=== PATIENT | male | born 1955 | race Caucasian/White ===

== ENCOUNTER 2017-01-31 12:29 | Inpatient (IN) | payer BC ==
[2017-01-31] VITALS (18 sets, daily range): BP systolic 90–122; BP diastolic 59–82; PULSE 64–81; TEMP 36.7–36.9; O2SAT 94–100; BMI 25.7
[~2017-01-31] VITALS: Ht 177.8 cm; Wt 79.8 kg
[2017-01-31] MEDS ORDERED: ASPIRIN 81 MG CHEW PO STA (12:50)
[2017-01-31] MEDS ORDERED: CLOPIDOGREL BISULFATE 300 MG TAB PO STA (12:54)
[2017-01-31 13:07] LABS: BASO % 0.1 %; BASO ABS # 0.02 K/uL (0-0.2); COMPLETE YES; EOS % 0.1 %; HEMATOCRIT 51.7 % (42-52); IG% 0.3 %; LYMPH % 9.8 %; LYMPH ABS # 1.75 K/uL (1.2-3.4); MEAN CORPUSCULAR HEMOGLOBIN 31.1 pg (25-34); MEAN CORPUSCULAR HGB CONC 35.8 g/dl (32-36); MEAN PLATELET VOLUME 11.1 fL (7.4-10.4); MONO % 8.8 %; NEUT % 80.9 %; PLATELET COUNT 221 K/uL (130-400); RED BLOOD COUNT 5.94 M/uL (4.7-6.1); WHITE BLOOD COUNT 17.78 K/uL (4.8-10.8)
[2017-01-31 13:10] LABS: ISTAT CREATININE 0.9 mg/dl (0.6-1.3); ISTAT HEMOGLOBIN 16.7 g/dl (14.0-18.0); ISTAT IONIZED CALCIUM 1.19 mmol/l (1.12-1.32)
[2017-01-31 13:14] LABS: PARTIAL THROMBOPLASTIN RATIO 0.9
[2017-01-31] MEDS ORDERED: NiCARDipine HCL INJ 2.5 MG/ML 10 ML AMP ONE (13:16)
[2017-01-31] MEDS ORDERED: FENTANYL CITRATE INJ 50 MCG/1 ML 2 ML VIAL ONE (13:16)
[2017-01-31] MEDS ORDERED: HEPARIN SOD (PORCINE) 1000 UNIT/ML 10 ML VIAL ONE (13:16)
[2017-01-31] MEDS ORDERED: MIDAZOLAM HCL 1 MG/ML 2ML VIAL ONE (13:16)
[2017-01-31] MEDS ORDERED: NITROGLYCERIN/D5W 100MCG/ML 20ML SYR ONE (13:16)
--- NOTE | 2017-01-31 13:19 | DIAGNOSTIC IMAGING REPORT ---
CHEST ONE VIEW PORTABLE HISTORY: 61 years-old Male Evaluate Fever/Sepsis acute fever with sepsis COMPARISON: None available TECHNIQUE: Portable AP view of the chest FINDINGS: Cardiomediastinal and hilar silhouettes are within normal limits. No pneumothorax, pleural effusion, focal airspace consolidation or overt pulmonary edema. The bones of the chest are grossly intact. IMPRESSION: No acute cardiopulmonary process. The above report was generated using voice recognition software. It may contain grammatical, syntax or spelling errors. Electronically signed by: Red Cantu M.D. 01/31/2017 1:17 PM Dictated Date/Time: 01/31/2017 1:16 PM
[2017-01-31 13:26] LABS: BUN/CREATININE RATIO 11.3 (10-20); CALCIUM 9.2 mg/dl (8.5-10.1); CREATININE 1.12 mg/dl (0.60-1.40)
[2017-01-31 13:45] LABS: CKMB/CK RATIO 12.3 (0-3.0); THYROID STIMULATING HORMONE 0.594 uIu/ml (0.300-4.500)
[2017-01-31] MEDS ORDERED: EPTIFIBATIDE 0.75 MG/ML 75MG VIAL IV ONE (14:13)
[2017-01-31] MEDS ORDERED: EPTIFIBATIDE 2 MG/ML 10 ML VIAL IV ONE ×2 (14:13)
--- NOTE | 2017-01-31 14:48 | EMERGENCY ROOM VISIT NOTE ---
History Report prepared by Mike: Jay Garland Under the Supervision of: Dr. Stephane Anderson D.O. First contact with patient: 12:45 Chief Complaint: CHEST PAIN Stated Complaint: CHEST PAIN,SWEATING,TIREDNESS History of Present Illness The patient is a 61 year old male who presents to the Emergency Room with complaints of chest pain that began 14 hours ago. He rates his pain a 5/10 in severity. He has never had a heart attack, cardiac catheterization, or a stress test. He denies any known medical problems. A couple of days ago, the patient states that he started to "not feel himself" which included feeling tired and run-down. 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 His symptoms continued into today, however his chest pain is significantly improved and his shortness of breath occurs intermittently. He notes diaphoresis as well. He is unsure what his cholesterol level is as he does not have a PCP. He denies any abdominal pain, nausea, or vomiting. Source of History: patient Onset: 14 hours ago Position: chest Symptom Intensity: 5/10 Quality: sharp Timing: constant Associated Symptoms: + diaphoresis, + SOB, + fatigue, No nausea, No vomiting , No abdominal pain Review of Systems See HPI for pertinent positives & negatives. A total of 10 systems reviewed and were otherwise negative. Past Medical & Surgical Medical Problems: (1) No Known Active Medical Problems Family History Patient reports no known family medical history. Social History Smoking Status: Former Smoker Smokeless Tobacco Use: Yes Drug Use: marijuana Occupation Status: employed Physical Exam Vital Signs Date Time Temp Pulse Resp B/P (MAP) Pulse Ox O2 Delivery O2 Flow Rate FiO2 01/31/17 14:32 50 18 117/70 (86) 100 Room Air 01/31/17 13:24 67 16 136/80 96 01/31/17 13:20 67 16 96 01/31/17 13:15 70 17 136/80 95 01/31/17 13:14 97 Room Air 01/31/17 13:14 97 Room Air 01/31/17 13:10 69 24 96 01/31/17 13:09 78 19 97 01/31/17 13:04 66 12 97 01/31/17 13:00 148/96 01/31/17 12:59 89 15 01/31/17 12:54 82 16 97 01/31/17 12:51 152/117 01/31/17 12:49 68 01/31/17 12:49 91 18 01/31/17 12:40 97 Room Air 01/31/17 12:36 36.7 88 18 143/93 99 Room Air Physical Exam CONSTITUTIONAL/VITAL SIGNS: Reviewed / noted above. GENERAL: Non-toxic in appearance. INTEGUMENTARY: Warm, dry, and [place]. HEAD: Normocephalic. EYES: without scleral icterus or trauma. ENT/OROPHARYNX: clear and moist. LYMPHADENOPATHY/NECK: Is supple without lymphadenopathy or meningismus. RESPIRATORY: Lungs clear and equal. CARDIOVASCULAR: Regular rate and rhythm. GI/ABDOMEN: Soft and nontender. No organomegaly or pulsatile mass. No rebound or guarding. Normal bowel sounds. EXTREMITIES: Warm and well perfused. BACK: No CVA tenderness. NEUROLOGICAL: Intact without focal deficits. PSYCHIATRIC: normal affect. MUSCULOSKELETAL: Normally developed with good muscle tone. Medical Decision & Procedures ER Provider Diagnostic Interpretation: Radiology results as stated below per my review and radiologist interpretation: CHEST ONE VIEW PORTABLE HISTORY: 61 years-old Male Evaluate Fever/Sepsis acute fever with sepsis COMPARISON: None available TECHNIQUE: Portable AP view of the chest FINDINGS: Cardiomediastinal and hilar silhouettes are within normal limits. No pneumothorax, pleural effusion, focal airspace consolidation or overt pulmonary edema. The bones of the chest are grossly intact. IMPRESSION: No acute cardiopulmonary process. The above report was generated using voice recognition software. It may contain grammatical, syntax or spelling errors. Electronically signed by: Red Cantu M.D. 01/31/2017 1:17 PM Dictated Date/Time: 01/31/2017 1:16 PM Laboratory Results 01/31/17 12:40 Red Blood Count 5.94, Mean Corpuscular Volume 87.0, Mean Corpuscular Hemoglobin 31.1, Mean Corpuscular Hemoglobin Concent 35.8, Mean Platelet Volume 11.1, Neutrophils (%) (Auto) 80.9, Lymphocytes (%) (Auto) 9.8, Monocytes (%) (Auto) 8.8, Eosinophils (%) (Auto) 0.1, Basophils (%) (Auto) 0.1, Neutrophils # (Auto) 14.38, Lymphocytes # (Auto) 1.75, Monocytes # (Auto) 1.56, Eosinophils # (Auto) 0.01, Basophils # (Auto) 0.02 01/31/17 12:40 Test 01/31/17 12:40 01/31/17 12:50 01/31/17 12:57 White Blood Count 17.78 K/uL (4.8-10.8) Red Blood Count 5.94 M/uL (4.7-6.1) Hemoglobin 18.5 g/dL (14.0-18.0) Hematocrit 51.7 % (42-52) Mean Corpuscular Volume 87.0 fL (80-100) Mean Corpuscular Hemoglobin 31.1 pg (25-34) Mean Corpuscular Hemoglobin Concent 35.8 g/dl (32-36) Platelet Count 221 K/uL (130-400) Mean Platelet Volume 11.1 fL (7.4-10.4) Neutrophils (%) (Auto) 80.9 % Lymphocytes (%) (Auto) 9.8 % Monocytes (%) (Auto) 8.8 % Eosinophils (%) (Auto) 0.1 % Basophils (%) (Auto) 0.1 % Neutrophils # (Auto) 14.38 K/uL (1.4-6.5) Lymphocytes # (Auto) 1.75 K/uL (1.2-3.4) Monocytes # (Auto) 1.56 K/uL (0.11-0.59) Eosinophils # (Auto) 0.01 K/uL (0-0.5) Basophils # (Auto) 0.02 K/uL (0-0.2) RDW Standard Deviation 41.4 fL (36.4-46.3) RDW Coefficient of Variation 13.0 % (11.5-14.5) Immature Granulocyte % (Auto) 0.3 % Immature Granulocyte # (Auto) 0.06 K/uL (0.00-0.02) Prothrombin Time 10.0 SECONDS (9.0-12.0) Prothromb Time International Ratio 1.0 (0.9-1.1) Activated Partial Thromboplast Time 24.1 SECONDS (21.0-31.0) Partial Thromboplastin Ratio 0.9 Est Creatinine Clear Calc Drug Dose 70.6 ml/min Estimated GFR () 81.2 Estimated GFR (Non- 70.0 BUN/Creatinine Ratio 11.3 (10-20) Calcium Level 9.2 mg/dl (8.5-10.1) Total Bilirubin 1.3 mg/dl (0.2-1) Direct Bilirubin 0.3 mg/dl (0-0.2) Aspartate Amino Transf (AST/SGOT) 420 U/L (15-37) Alanine Aminotransferase (ALT/SGPT) 106 U/L (12-78) Alkaline Phosphatase 79 U/L (45-117) Total Creatine Kinase 2784 U/L (39-308) Creatine Kinase MB 343.0 ng/ml (0.5-3.6) Creatine Kinase MB Ratio 12.3 (0-3.0) Troponin I 49.700 ng/ml (0-0.045) Total Protein 7.8 gm/dl (6.4-8.2) Albumin 3.9 gm/dl (3.4-5.0) Lipase 453 U/L (73-393) Thyroid Stimulating Hormone (TSH) 0.594 uIu/ml (0.300-4.500) Bedside Troponin I 35.860 ng/ml (0-0.045) Bedside Hemoglobin 16.7 g/dl (14.0-18.0) Bedside Hematocrit 49 % (42-52) Bedside Sodium 137 mEq/L (135-144) Bedside Potassium 4.1 mEq/L (3.3-5.0) Bedside Chloride 96 mEq/L (101-112) Bedside Total CO2 28 mEq/l (24-31) Anion Gap 17.0 mmol/L (16-25) Bedside Blood Urea Nitrogen 13 mg/dl (7-18) Bedside Creatinine 0.9 mg/dl (0.6-1.3) Bedside Glucose (other) 192 mg/dl (70-99) Bedside Ionized Calcium ([place]) 1.19 mmol/l (1.12-1.32) Laboratory results as stated above per my review. Medications Administered Medications (Trade) Dose Ordered Sig/[place] Route Start Time Stop Time Status Last Admin Dose Admin Aspirin (Aspirin Chew) 324 mg NOW STAT PO 01/31/17 12:50 01/31/17 12:52 DC 01/31/17 12:56 324 MG Clopidogrel Bisulfate (plAVix TAB) 300 mg NOW STAT PO 01/31/17 12:54 01/31/17 12:55 DC 01/31/17 12:56 300 MG Midazolam HCl (Versed Inj) 2 mg STK-MED ONCE .ROUTE 01/31/17 13:16 01/31/17 13:17 DC 01/31/17 13:16 1 MG Fentanyl Citrate (Fentanyl Inj) 100 mcg STK-MED ONCE .ROUTE 01/31/17 13:16 01/31/17 13:17 DC 01/31/17 13:16 50 MCG Heparin Sodium (Porcine) (Heparin Iv Bolus) 10,000 unit STK-MED ONCE .ROUTE 01/31/17 13:16 01/31/17 13:17 DC 01/31/17 13:16 8,000 UNIT Eptifibatide (Integrilin Inj) 20 mg STK-MED ONCE IV 01/31/17 14:13 01/31/17 14:14 DC 01/31/17 14:13 20 MG Eptifibatide (Integrilin Inj) 75 mg STK-MED ONCE IV 01/31/17 14:13 01/31/17 14:14 DC 01/31/17 14:13 75 MG Eptifibatide (Integrilin Inj) 20 mg STK-MED ONCE IV 01/31/17 14:13 01/31/17 14:14 DC 01/31/17 14:14 20 MG ECG Indication: chest pain Rate (beats per minute): 63 Rhythm: sinus rhythm Findings: ST depression (Anterolateral), ST elevation (Inferior), other ( Suggesting acute inferior wall NV) ED Course 1245: Previous medical records were reviewed. The patient was evaluated in room A12. A complete history and physical examination was performed. 1250: Ordered Aspirin 324 mg PO 1254: Ordered Clopidogrel 300 mg PO 1320: The patient will be taken to the catheterization lab to be further evaluated by Dr. Morton of Cardiology. Medical Decision Differentials considered include acute myocardial infarction, acute coronary syndrome, myocarditis, pericarditis, pericardial effusions /tamponade, esophageal perforation, thoracic aortic dissection, pulmonary embolism, pneumonia, pneumothorax, pancreatitis, shingles, acute cholecystitis, and perforated abdominal viscus. This is a 61-year-old male who presents to the ED with a chief complaint of feeling chest pains or shortness of breath. The patient states that he had a lot of chest pain yesterday. He states that he has just a little now. The patient also has been feeling tired and run down. He had some associated shortness of breath he was a smoker quit 3 years ago. He is a 25 year history of smoking. 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 His physical exam was unremarkable. Initial twelve-lead EKG was brought to my attention after being performed that reveals an acute inferior wall NV. Heart alert was called. Patient was treated with aspirin by mouth as well as Plavix by mouth. He stated that the majority of his pain was gone but he has some mild residual pain. The patient was taken to the cardiac labeler for further evaluation of his symptoms. His chest x-ray did not show acute disease. Initial troponin was 35 on i-STAT and 49 and the lab. The patient remained clinically stable during his ED stay was taken to the [employer] [facility]. Medication Reconcilliation Current Medication List: was personally reviewed by me Blood Pressure Screening Patient's blood pressure: Elevated blood pressure Blood pressure disposition: Referred to PCP Impression Primary Impression: Acute NV, inferior wall Critical Care I have personally spent greater than 30 minutes of critical care time in the direct management of this patient. This includes bedside care, interpretation of diagnostic studies, and testing, discussion with consultants, patient, and family members, and other required patient management activities. This 30 minutes is in excess of all separately billable procedures. Scribe Attestation The scribe's documentation has been prepared under my direction and personally reviewed by me in its entirety. I confirm that the note above accurately reflects all work, treatment, procedures, and medical decision making performed by me. Departure Information Dispostion Other (Being evaluated by Cardiology in the catheterization lab) Referrals Jaya Russell D.O. (PCP) Patient Instructions My [facility]
[2017-01-31] MEDS ORDERED: NITROGLYCERIN 0.4 MG SL PER TAB CHARGE SL PRN ×2 (15:00→15:30)
[2017-01-31] MEDS ORDERED: ONDANSETRON INJ 2 MG/ML 2 ML VIAL IV PRN (15:00)
[2017-01-31] MEDS ORDERED: ACETAMINOPHEN 325 MG TAB PO PRN ×2 (15:00→15:30)
[2017-01-31] MEDS ORDERED: EPTIFIBATIDE BOLUS / DRIP IV STA (15:02)
--- NOTE | 2017-01-31 15:02 | Procedure Note ---
Pre-Mod Sedation Assessment General Date of Moderate Sedation: Jan 31, 2017. Vital Signs: Vital Signs Past 12 Hours Date Time Temp Pulse Resp B/P (MAP) Pulse Ox O2 Delivery O2 Flow Rate FiO2 01/31/17 14:45 73 18 122/71 (88) 97 Room Air 01/31/17 14:32 50 18 117/70 (86) 100 Room Air 01/31/17 13:24 67 16 136/80 96 01/31/17 13:20 67 16 96 01/31/17 13:15 70 17 136/80 95 01/31/17 13:14 97 Room Air 01/31/17 13:14 97 Room Air 01/31/17 13:10 69 24 96 01/31/17 13:09 78 19 97 01/31/17 13:04 66 12 97 01/31/17 13:00 148/96 01/31/17 12:59 89 15 01/31/17 12:54 82 16 97 01/31/17 12:51 152/117 01/31/17 12:49 68 01/31/17 12:49 91 18 01/31/17 12:40 97 Room Air 01/31/17 12:36 36.7 88 18 143/93 99 Room Air Review Cardiovascular: regular rate, rhythm, no edema Abdomen: normal bowel sounds, non tender Lungs: chest non-tender, lungs clear Airway Class: III Pre-Sedation Airway Assessment Oral Cavity: WNL Able to Visualize Vocal Cords: No Short Thick Neck: No Hx of Sleep Apnea: No Smoking Status: Former Smoker Mallampati Classification: Class III ASA Classification: Class IV Procedure Planning Contraindications-for Mod Sed: None Yes Notes The planned sedation has been discussed with the patient and consent obtained. I have identified the patient, determined the appropriateness of sedation and have assessed the patient immediately prior to the procedure. All medicine(s) and interventions are by my order.
--- NOTE | 2017-01-31 15:05 | Procedure Note ---
Post-Mod Sedation Assessment General Date of Moderate Sedation Jan 31, 2017. Vital Signs: Vital Signs Past 12 Hours Date Time Temp Pulse Resp B/P (MAP) Pulse Ox O2 Delivery O2 Flow Rate FiO2 01/31/17 14:45 73 18 122/71 (88) 97 Room Air 01/31/17 14:32 50 18 117/70 (86) 100 Room Air 01/31/17 13:24 67 16 136/80 96 01/31/17 13:20 67 16 96 01/31/17 13:15 70 17 136/80 95 01/31/17 13:14 97 Room Air 01/31/17 13:14 97 Room Air 01/31/17 13:10 69 24 96 01/31/17 13:09 78 19 97 01/31/17 13:04 66 12 97 01/31/17 13:00 148/96 01/31/17 12:59 89 15 01/31/17 12:54 82 16 97 01/31/17 12:51 152/117 01/31/17 12:49 68 01/31/17 12:49 91 18 01/31/17 12:40 97 Room Air 01/31/17 12:36 36.7 88 18 143/93 99 Room Air Review - Discharge Criteria Vital Signs Stable: Yes Alert/Oriented/Conversant: Yes Returned to Baseline Mental St: Yes Nausea Absent/Minimal: Yes Pain/Discomfort/Absent/Minimal: Yes Normal/Baseline Respirations: Yes Active Bleeding?: No Pt Received D/C Instructions: N/A Prescriptions Given: None Specific Proced. D/C Criteria Distal Pulses Present (Cardiac: Yes Groin site assessed-Card Cath: N/A Voided Prior To Discharge: N/A Discharged Patients Adult Escort/Transportation: Yes
--- NOTE | 2017-01-31 15:20 | Cardiac Catheterization ---
Procedure Note Procedure Date Jan 31, 2017. 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 Circumflex - Moderate caliber, 80-90% proximal small-moderate size OM2 RCA - Dominant, 20-30% proximal, 100% sub-acute distal RCA occlusion; Post intervention 50% ostial R-PDA -- PCI -- Antithrombotic therapy: Heparin, Integrilin, Clopidogrel Procedure: RCA cannulated with JR4 guide Whisper wire passed across lesion into distal R-PAV Distal RCA lesion predilated with 2.5 compliant balloon Dilated lesion stented with 2 overlapping CANDI (3.0 x 22 Alpine, 2.75 x 30 Alpine) Stents post-dilated with 3.5 noncompliant balloon IC vasodilators administered for spasm Post procedure JOSE A 3 flow, stent well expanded with minimal residual stenosis and no apparent cardiac complications. Arterial Closure: TR Band Summary: 1. Inferior STEMI/Occluded distal RCA 2. 80-90% small distal circumflex/proximal OM2 3. Successful PCI of distal RCA with 2 overlapping CANDI (3.0 x 22, 2.75 x 30 Alpine ; post-dilated to 3.5). Recommendations: Admit to ICU for continued monitoring Loaded with Clopidogrel 600m Integrilin for 8 hours due to distal thrombus Continue dual-antiplatelet therapy with ASA/Clopidogrel for 1 year Trend troponins until peak, Check Echo Start beta-rustam/BRENDA as BP allows High-dose statin Consult cardiac Rehab Possible PCI of circumflex/OM2 later in hospitalization Hemodynamics Rest Ao: 131/71/98 Final Ao: 100/61/78 LV: -- Recommendations PCI without planned CABG Specimens None Radiation Exposure (mGy) 2262 Contrast (mls) 150 Fluids (cc crystalloids) 100 Drains None Anesthesia Moderate Procedural Complication(s) None Disposition ICU ACC Data Cardiac Status Clinical evaluation leading to the procedure CAD Presntation: STEMI STEMI or Non-STEMI: Symptom Onset Date/Time: 01/30 14:00 Thrombolytics: No Anginal Classification: CCS IV Heart Failure: No, NYHA Class: CCS I Cardiogenic Shock w/in 24Hrs: No Cardiac Arrest w/in 24Hrs: No Imaging studies past 6 months: No Stress studies past 6 months: No Diagnostic Status: Emergency Closure Device Percutaneous Entry Location: Radial Closure Device: Radial Band Recommendations: PCI without planned CABG PCI Indication: PCI for STEMI - Unstable First Noted: First EKG Lesion Segment Name: Distal RCA Culprit Artery: Yes Stenosis Prior to Rx (%): 100 Pre-Procedure JOSE A Flow: 0 Previously Treated Lesion: No Lesion Complexity: Non-High/Non-C Lesion Length (mm): 30 Thrombus Present: Yes Bifurcation Lesion: No Guidewire Across Lesion: Yes Guidewire: Stenosis Post-Procedure (%): 0 Post-Procedure JOSE A Flow: 3 Device(s) Deployed: Yes Intraprocedure Events Significant Dissection: No Perforation: No
[2017-01-31] MEDS ORDERED: MoRPHine SULFATE 2 MG/ML CARP IV PRN (15:30)
[2017-01-31] MEDS ORDERED: EPTIFIBATIDE INJ 75 MG PREMIXED IV SCH (15:30)
[2017-01-31] MEDS ORDERED: LORAZEPAM 0.5 MG TAB PO PRN (15:30)
[2017-01-31] MEDS ORDERED: LORAZEPAM 2 MG/ML 1 ML VIAL IV PRN (15:45)
[2017-01-31] MEDS: SODIUM CHLORIDE 0.9% 1000ML 1,000 ML IV SCH ×2 (15:47→21:46)
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
[2017-01-31] MEDS: METOPROLOL TARTRATE 25 MG TAB PO SCH (20:16)
[2017-01-31] MEDS ORDERED: Integrelin infusion --> STOP ORDER ONE (23:00)
[2017-02-01] VITALS (21 sets, daily range): BP systolic 73–111; BP diastolic 49–75; PULSE 70–107; TEMP 36.5–37.5; O2SAT 93–98
[2017-02-01 06:28] LABS: BASO % 0.1 %; BASO ABS # 0.02 K/uL (0-0.2); COMPLETE YES; EOS % 0.1 %; HEMATOCRIT 46.5 % (42-52); IG% 0.3 %; LYMPH % 15.1 %; LYMPH ABS # 2.07 K/uL (1.2-3.4); MEAN CELL VOLUME 86.6 fL (80-100); MEAN CORPUSCULAR HEMOGLOBIN 30.7 pg (25-34); MEAN CORPUSCULAR HGB CONC 35.5 g/dl (32-36); MEAN PLATELET VOLUME 11.2 fL (7.4-10.4); MONO % 15.7 %; NEUT % 68.7 %; PLATELET COUNT 176 K/uL (130-400); RED BLOOD COUNT 5.37 M/uL (4.7-6.1); WHITE BLOOD COUNT 13.72 K/uL (4.8-10.8)
[2017-02-01 07:07] LABS: BUN/CREATININE RATIO 14.7 (10-20); CALCIUM 8.5 mg/dl (8.5-10.1); CREATININE 0.84 mg/dl (0.60-1.40); MAGNESIUM 2.1 mg/dl (1.8-2.4); POTASSIUM 3.9 mmol/L (3.5-5.1)
[2017-02-01 07:30] LABS: CHOLESTEROL/HDL RATIO 2.1
[2017-02-01 07:45] LABS: ESTIMATED AVERAGE GLUCOSE 134 mg/dl; HA1C FLAG Normal (Normal)
[2017-02-01] MEDS ORDERED: ATORVASTATIN 40 MG TAB PO SCH (09:00)
[2017-02-01] MEDS: LISINOPRIL 5 MG TAB PO SCH (09:17)
[2017-02-01] MEDS: THIAMINE HCL 100 MG TAB PO SCH (09:18)
[2017-02-01] MEDS: ASPIRIN 81 MG ECTAB PO SCH (09:18)
[2017-02-01] MEDS: CLOPIDOGREL BISULFATE 75 MG TAB PO SCH (09:18)
[2017-02-01] MEDS: METOPROLOL TARTRATE 25 MG TAB PO SCH ×3 (09:18→21:00)
--- NOTE | 2017-02-01 10:50 | Critical Care Progress Note ---
Critical Care Progress Note Date of Service Feb 01, 2017. ICU Day ICU Day Number: [address] Tello Subjective Patient is resting comfortably in bed this morning with no acute complaints. Denies any chest pain or shortness of breath at this time. Has been urinating well, normal bowel movements, and denies any acute events overnight. Objective GENERAL: Awake, alert, well-appearing, in no distress HENT: Normocephalic, atraumatic. EYES: Normal conjunctiva. Sclera non-icteric. NECK: Supple. No nuchal rigidity. RESPIRATORY: Clear to auscultation. CARDIAC: Regular rate, normal rhythm. Extremities warm and well perfused. Pulses equal. ABDOMEN: Soft, non-distended. No tenderness to palpation. No rebound or guarding. No masses. RECTAL: Deferred. MUSCULOSKELETAL: Chest examination reveals no tenderness. The back is symmetrical on inspection without obvious abnormality. There is no CVA tenderness to palpation. No joint edema. LOWER EXTREMITIES: Calves are equal size bilaterally and non-tender. NEURO: Normal sensorium. No sensory or motor deficits noted. SKIN: No rash or jaundice noted. Current SOFA Score SOFA Score Response (Comments) Value Platelets (x10) > 150 0 Bilirubin (mg/dL) 1.2 - 1.9 1 [place] Coma Score 15 0 Level of Hypotension No Hypotension 0 Creatinine (mg/dL) < 1.2 0 Total 1 Assessment & Plan Patient is a 61 year old male that began experiencing chest pain on 01/30 that was 9/10 substernal pain but waited to come to the ED until 01/31 and a heart alert was called for STEMI after found to have ST elevations in the inferior leads suggesting an acute UT on EKG and a significantly elevated troponin. Cardiac cath found significant multivessel disease and 2 stents were placed in the distal RCA. The patient has tolerated the procedure well with no complaints of discomfort at this time and will go for additional stenting to the circumflex tomorrow. Neuro: - CAM-ICU Negative --> Alert and oriented x 3 - CIWA protocol for routine alcohol use --> Thiamine, Folic Acid + PRN Ativan for withdrawal CV: - STEMI s/p cardiac catheterization and stenting with outcomes listed below 1. Inferior STEMI/Occluded distal RCA 2. 80-90% small distal circumflex/proximal OM2 3. Successful PCI of distal RCA with 2 overlapping CANDI - Plan for stenting of circumflex tomorrow - Recommend dual antiplatelet therapy with Aspirin and Plavix for 1 year - Troponin 49.7 --> 56.4 - Lisinopril 5mg qAM - Metoprolol 25mg BID - Atorvastatin 80mg qAM - Consult Cardiac Rehab - ECHO: * Left ventricular systolic function is normal. * Akinesis of the proximal and mid inferior wall and adjacent inferoseptum. * Ejection Fraction = 55-60%. Resp: - Currently saturating well on room air - Supplemental oxygen as needed to maintain SpO2 > 90% - History of tobacco (25 pack years, quit 3 years ago) and marijuana abuse GI/Nutrition: - AHA heart healthy diet Heme: - Plavix + Aspirin Endocrine: - Hb A1c - 6.3 - Monitor blood sugars - Follow up with pcp regarding prediabetes Code Status - Full Resuscitation Attending addendum, agree with the above plan, the pt with STEMI, s/p RCA CANDI stening, successfully chest pain free, watch for ETOH withdrawal, continue current treatment per cardiology. agree with transfer to tele. discussed with the staff on rounds in details. CCT 35 min. Consults & Procedures Consultants: Dr. Dejon Morton Procedures: Cardiac Catheterization with stenting on 01/31/2017 Data Medications: Current Inpatient Medications Medications (Trade) Dose Ordered Sig/Suyapa Route Start Time Stop Time Status Last Admin Dose Admin Ondansetron HCl (Zofran Inj) 4 mg Q6H PRN IV 01/31/17 15:00 03/02/17 14:59 Aspirin (Ecotrin Tab) 81 mg QAM PO 02/01/17 09:00 03/03/17 08:59 02/01/17 09:18 81 MG Clopidogrel Bisulfate (plAVix TAB) 75 mg QAM PO 02/01/17 09:00 03/03/17 08:59 02/01/17 09:18 75 MG Metoprolol Tartrate (Lopressor Tab) 25 mg Q12 PO 01/31/17 21:00 03/02/17 20:59 02/01/17 09:18 25 MG Lisinopril (Zestril Tab) 5 mg QAM PO 02/01/17 09:00 03/03/17 08:59 02/01/17 09:17 5 MG Nitroglycerin (Nitrostat Tab) 0.4 mg Q5M PRN SL 01/31/17 15:30 03/02/17 15:29 Morphine Sulfate (MoRPHine SULFATE INJ) 2 mg Q30M PRN IV 01/31/17 15:30 02/14/17 15:29 Acetaminophen (Tylenol Tab) 650 mg Q4H PRN PO 01/31/17 15:30 03/02/17 15:29 Lorazepam (Ativan Tab) 0.5 mg Q4H PRN PO 01/31/17 15:30 03/02/17 15:29 Lorazepam (Ativan Inj) 1 mg Q4H PRN IV 01/31/17 15:45 03/02/17 15:44 Thiamine HCl (Vitamin B-1 Tab) 100 mg QAM PO 02/01/17 09:00 03/03/17 08:59 02/01/17 09:18 100 MG Folic Acid (Folvite Tab) 1 mg QAM PO 02/01/17 09:00 03/03/17 08:59 02/01/17 09:18 1 MG Vital Signs: Date Time Temp Pulse Resp B/P (MAP) Pulse Ox O2 Delivery O2 Flow Rate FiO2 02/01/17 08:00 95 Room Air 02/01/17 08:00 36.7 107 20 107/74 (85) 95 Room Air 02/01/17 06:01 84 21 103/74 (84) 93 02/01/17 06:00 81 22 93 02/01/17 05:30 37.1 02/01/17 05:00 76 21 101/75 (84) 93 02/01/17 04:04 95 Room Air 02/01/17 04:00 83 21 101/62 (75) 95 02/01/17 03:00 72 21 111/75 (87) 94 02/01/17 02:01 70 21 93/63 (73) 93 02/01/17 02:00 71 21 93 02/01/17 01:00 75 19 88/53 (65) 95 02/01/17 00:01 71 21 85/50 (62) 93 02/01/17 00:00 37.5 72 22 93 02/01/17 00:00 95 Room Air 01/31/17 23:00 75 20 103/59 (74) 95 01/31/17 22:00 66 20 90/67 (75) 94 01/31/17 21:01 68 21 93/66 (75) 94 01/31/17 21:00 68 21 94 01/31/17 20:00 36.9 68 21 109/71 (84) 95 01/31/17 20:00 95 Room Air 01/31/17 19:31 80 26 93/67 (76) 96 01/31/17 19:16 68 21 101/69 (80) 95 01/31/17 19:01 67 20 97/62 (74) 95 01/31/17 19:00 71 20 95 01/31/17 18:15 66 20 100/70 (80) 95 Room Air 01/31/17 17:15 70 18 106/67 (80) 96 Room Air 01/31/17 16:45 70 22 109/71 (84) 95 Room Air 01/31/17 16:15 36.8 66 20 106/76 (86) 97 Room Air 01/31/17 15:54 36.7 73 18 122/71 97 Nasal Cannula 2.0 01/31/17 15:45 81 18 111/82 (92) 95 Room Air 01/31/17 15:30 64 18 118/70 (86) 98 Room Air 01/31/17 15:15 67 13 115/79 (91) 100 01/31/17 15:00 68 17 103/75 (84) 96 Room Air 01/31/17 14:45 73 18 122/71 (88) 97 Room Air 01/31/17 14:32 50 18 117/70 (86) 100 Room Air 01/31/17 13:24 67 16 136/80 96 01/31/17 13:20 67 16 96 01/31/17 13:15 70 17 136/80 95 01/31/17 13:14 97 Room Air 01/31/17 13:14 97 Room Air 01/31/17 13:10 69 24 96 01/31/17 13:09 78 19 97 01/31/17 13:04 66 12 97 01/31/17 13:00 148/96 01/31/17 12:59 89 15 01/31/17 12:54 82 16 97 01/31/17 12:51 152/117 01/31/17 12:49 68 01/31/17 12:49 91 18 01/31/17 12:40 97 Room Air 01/31/17 12:36 36.7 88 18 143/93 99 Room Air Laboratory Results: Last 24 Hours Test 01/31/17 12:40 01/31/17 12:50 01/31/17 12:57 01/31/17 13:50 White Blood Count 17.78 K/uL Red Blood Count 5.94 M/uL Hemoglobin 18.5 g/dL Hematocrit 51.7 % Mean Corpuscular Volume 87.0 fL Mean Corpuscular Hemoglobin 31.1 pg Mean Corpuscular Hemoglobin Concent 35.8 g/dl Platelet Count 221 K/uL Mean Platelet Volume 11.1 fL Neutrophils (%) (Auto) 80.9 % Lymphocytes (%) (Auto) 9.8 % Monocytes (%) (Auto) 8.8 % Eosinophils (%) (Auto) 0.1 % Basophils (%) (Auto) 0.1 % Neutrophils # (Auto) 14.38 K/uL Lymphocytes # (Auto) 1.75 K/uL Monocytes # (Auto) 1.56 K/uL Eosinophils # (Auto) 0.01 K/uL Basophils # (Auto) 0.02 K/uL RDW Standard Deviation 41.4 fL RDW Coefficient of Variation 13.0 % Immature Granulocyte % (Auto) 0.3 % Immature Granulocyte # (Auto) 0.06 K/uL Prothrombin Time 10.0 SECONDS Prothromb Time International Ratio 1.0 Activated Partial Thromboplast Time 24.1 SECONDS Partial Thromboplastin Ratio 0.9 Sodium Level 133 mmol/L Potassium Level 4.0 mmol/L Chloride Level 98 mmol/L Carbon Dioxide Level 29 mmol/L Anion Gap 6.0 mmol/L 17.0 mmol/L Blood Urea Nitrogen 13 mg/dl Creatinine 1.12 mg/dl Est Creatinine Clear Calc Drug Dose 70.6 ml/min Estimated GFR () 81.2 Estimated GFR (Non- 70.0 BUN/Creatinine Ratio 11.3 Random Glucose 188 mg/dl Calcium Level 9.2 mg/dl Total Bilirubin 1.3 mg/dl Direct Bilirubin 0.3 mg/dl Aspartate Amino Transf (AST/SGOT) 420 U/L Alanine Aminotransferase (ALT/SGPT) 106 U/L Alkaline Phosphatase 79 U/L Total Creatine Kinase 2784 U/L Creatine Kinase MB 343.0 ng/ml Creatine Kinase MB Ratio 12.3 Troponin I 49.700 ng/ml Total Protein 7.8 gm/dl Albumin 3.9 gm/dl Lipase 453 U/L Thyroid Stimulating Hormone (TSH) 0.594 uIu/ml Bedside Troponin I 35.860 ng/ml Bedside Hemoglobin 16.7 g/dl Bedside Hematocrit 49 % Bedside Sodium 137 mEq/L Bedside Potassium 4.1 mEq/L Bedside Chloride 96 mEq/L Bedside Total CO2 28 mEq/l Bedside Blood Urea Nitrogen 13 mg/dl Bedside Creatinine 0.9 mg/dl Bedside Glucose (other) 192 mg/dl Bedside Ionized Calcium ([place]) 1.19 mmol/l Kaolin Activated Coagulation Time 252 SECONDS Test 01/31/17 15:45 02/01/17 05:48 Bedside Glucose 136 mg/dl White Blood Count 13.72 K/uL Red Blood Count 5.37 M/uL Hemoglobin 16.5 g/dL Hematocrit 46.5 % Mean Corpuscular Volume 86.6 fL Mean Corpuscular Hemoglobin 30.7 pg Mean Corpuscular Hemoglobin Concent 35.5 g/dl Platelet Count 176 K/uL Mean Platelet Volume 11.2 fL Neutrophils (%) (Auto) 68.7 % Lymphocytes (%) (Auto) 15.1 % Monocytes (%) (Auto) 15.7 % Eosinophils (%) (Auto) 0.1 % Basophils (%) (Auto) 0.1 % Neutrophils # (Auto) 9.42 K/uL Lymphocytes # (Auto) 2.07 K/uL Monocytes # (Auto) 2.16 K/uL Eosinophils # (Auto) 0.01 K/uL Basophils # (Auto) 0.02 K/uL RDW Standard Deviation 41.1 fL RDW Coefficient of Variation 13.0 % Immature Granulocyte % (Auto) 0.3 % Immature Granulocyte # (Auto) 0.04 K/uL Activated Partial Thromboplast Time 25.1 SECONDS Partial Thromboplastin Ratio 1.0 Sodium Level 134 mmol/L Potassium Level 3.9 mmol/L Chloride Level 103 mmol/L Carbon Dioxide Level 25 mmol/L Anion Gap 6.0 mmol/L Blood Urea Nitrogen 12 mg/dl Creatinine 0.84 mg/dl Est Creatinine Clear Calc Drug Dose 94.1 ml/min Estimated GFR () 108.8 Estimated GFR (Non- 93.8 BUN/Creatinine Ratio 14.7 Random Glucose 124 mg/dl Estimated Average Glucose 134 mg/dl Hemoglobin A1c 6.3 % Calcium Level 8.5 mg/dl Phosphorus Level 2.0 mg/dl Magnesium Level 2.1 mg/dl Total Bilirubin 1.7 mg/dl Direct Bilirubin 0.5 mg/dl Aspartate Amino Transf (AST/SGOT) 322 U/L Alanine Aminotransferase (ALT/SGPT) 97 U/L Alkaline Phosphatase 61 U/L Troponin I 56.400 ng/ml Total Protein 6.0 gm/dl Albumin 3.0 gm/dl Triglycerides Level 56 mg/dl Cholesterol Level 126 mg/dl HDL Cholesterol 61 mg/dl LDL Cholesterol, Calculated 54 mg/dl VLDL Cholesterol, Calculated 11 mg/dl Cholesterol/HDL Ratio 2.1 Resident Involvement: Resident Care Provided Care Provided: Adult Hospital Medicine
--- NOTE | 2017-02-01 12:26 | ECHOCARDIOGRAM REPORT ---
*NOTICE TO RECEIVING REPUBLICAN AGENCY This information is strictly Confidential and protected under [place] law. [place] law prohibits you from making any further disclosure of this information unless further disclosure is expressly permitted by the written consent of the person to whom it pertains or is authorized by law. A general authorization for the release of medical or other information is not sufficient for this purpose. Hospital accepts no responsibility if the information is made available to any other person, INCLUDING THE PATIENT. Interpretation Summary * Name: TATIANA VALERO Study Date: 02/01/2017 06:27 AM BP: 107/74 mmHg * Patient Location: .MSICU\[id number]\E107\S\1 HR: 107 * : 1955 (M/d/yyyy) Gender: Male Height: 70 in * Age: 61 yrs Ethnicity: CA Weight: 179 lb * Ordering Physician: Dejon Morton * Referring Physician: Self, Referred * Performed By: Todd Berman RCS * * Reason For Study: AMI * BSA: 2.0 m2 * -- Conclusions -- * Left ventricular systolic function is normal. * Akinesis of the proximal and mid inferior wall and adjacent inferoseptum. * Ejection Fraction = 55-60%. * There is mild concentric left ventricular hypertrophy. * There is mild tricuspid regurgitation. Procedure Details * A complete two-dimensional transthoracic echocardiogram was performed (2D, M-mode, Doppler and color flow Doppler). * A contrast injection of Definity was performed to improve assessment of LV function. * Contrast was injected into an intravenous site in the left arm. * One vial of Definity ultrasound contrast was diluted in normal saline to a total volume of 10 ml. A total of '1' ml of solution was administered during imaging. * Lot # [id number] of Definity utilized for procedure. * Expiration date . * The attending nurse who injected the contrast agent was Lena Jones RN. Left Ventricle * The left ventricle is normal in size. * There is mild concentric left ventricular hypertrophy. * Left ventricular systolic function is normal. * Ejection Fraction = 55-60%. * Akinesis of the proximal and mid inferior wall and adjacent inferoseptum. Right Ventricle * The right ventricle is grossly normal size. * The right ventricular systolic function is normal as assessed by tricuspid annular plane systolic excursion (TAPSE) (normal >1.5 cm). Atria * Borderline left atrial enlargement. * Right atrium not well visualized. * There is no evidence of atrial septal defect, but resolution does not allow assessment for a patent foramen ovale. Mitral Valve * The mitral valve is grossly normal. * Significant mitral regurgitation is absent. Tricuspid Valve * The tricuspid valve is not well visualized, but is grossly normal. * There is no tricuspid stenosis. * There is mild tricuspid regurgitation. Aortic Valve * The aortic valve is trileaflet. * The aortic valve opens well. * Aortic stenosis is absent. * No aortic regurgitation is present. Pulmonic Valve * The pulmonary valve is not well seen, but the Doppler examination is normal without significant regurgitation or stenosis. Great Vessels * The aortic root is normal size. * The pulmonary is not well visualized. Pericardium/Pleural * There is no pericardial effusion. Great Vessels * Normal inferior vena cava size and collapsability with sniff indicates a normal right atrial pressure of 3 mmHg MMode 2D Measurements and Calculations IVSd 1.0 cm IVSs 1.2 cm LVIDd 4.6 cm LVIDs 3.4 cm LVPWd 0.97 cm LVPWs 1.2 cm IVS/LVPW 1.1 FS 26.2 % EDV(Teich) 99.0 ml ESV(Teich) 48.0 ml EF(Teich) 51.5 % EDV(cubed) 99.4 ml ESV(cubed) 39.9 ml EF(cubed) 59.8 % % IVS thick 16.2 % % LVPW thick 23.8 % LV mass(C)d 160.9 grams LV mass(C)dI 80.8 grams/m\S\2 LV mass(C)s 131.2 grams LV mass(C)sI 65.9 grams/m\S\2 SV(Teich) 50.9 ml SI(Teich) 25.6 ml/m\S\2 SV(cubed) 59.5 ml SI(cubed) 29.9 ml/m\S\2 Ao root diam 3.3 cm Ao root area 8.5 cm\S\2 ACS 1.8 cm LA dimension 2.6 cm asc Aorta Diam 3.0 cm LA/Ao 0.78 EDV(MOD-sp4) 104.5 ml ESV(MOD-sp4) 36.2 ml EF(MOD-sp4) 65.3 % EDV(MOD-sp2) 73.4 ml ESV(MOD-sp2) 30.6 ml EF(MOD-sp2) 58.3 % SV(MOD-sp4) 68.2 ml SI(MOD-sp4) 34.3 ml/m\S\2 SV(MOD-sp2) 42.8 ml SI(MOD-sp2) 21.5 ml/m\S\2 Doppler Measurements and Calculations MV E max lamar 67.1 cm/sec MV A max lamar 50.1 cm/sec MV E/A 1.3 MV P1/2t max lamar 62.7 cm/sec MV P1/2t 79.6 msec MVA(P1/2t) 2.8 cm\S\2 MV dec slope 230.5 cm/sec\S\2 MV dec time 0.19 sec Ao V2 max 100.0 cm/sec Ao max PG 4.0 mmHg Ao max PG (full) 1.3 mmHg LV V1 max PG 2.7 mmHg LV V1 max 82.5 cm/sec PA V2 max 90.2 cm/sec PA max PG 3.3 mmHg TR max lamar 156.2 cm/sec
--- NOTE | 2017-02-01 18:00 | Cardiology Follow-Up ---
Subjective Subjective Date of Service: Feb 01, 2017. Pt evaluation today including: conversation w/ patient, physical exam, chart review, lab review, review of studies, review of inpatient medication list Additional Details: Feeling well. No recurrent chest pain. No events overnight. Telemetry reviewed--no significant arrhythmias Problem List Medical Problems: (1) Acute MA, inferior wall Status: Acute Review of Systems Constitutional: No fever, No chills Respiratory: No cough Cardiac: No chest pain Abdomen: No pain, No nausea Heme: No abnormal bleeding/bruising Endo: No fatigue Skin: No rash Objective Vital Signs Last Vital Signs Documentation Date Time Temp Pulse Resp B/P (MAP) Pulse Ox O2 Delivery O2 Flow Rate FiO2 02/01/17 16:00 93 Room Air 2.0 02/01/17 15:53 37.0 90 18 85/61 (69) Physical Exam: General Appearance: no apparent distress Neck: supple Respiratory/Chest: lungs clear, normal breath sounds Cardiovascular: regular rate, rhythm, no edema Abdomen: normal bowel sounds, non tender, soft Extremities: no pedal edema, + pertinent finding (Right radial artery--no hematoma, ecchymosis. Intact distal pulses and sensation) Neurologic/Psychiatric: alert, normal mood/affect Skin: warm/dry, no rash Assessment and Plan 1. Inferior STEMI--post PPCI 2 CANDI to RCA 2. Multivessel coronary artery disease with 80-90 percent distal circumflex/OM2 3. Preserved LV function inferior, inferolateral wall motion abnormalities 4. Elevated LFTs 5. History of alcohol abuse Chest pain free. Hemodynamically and electrically stable. Troponin has peaked. LV function preserved. --from a cardiac standpoint agree with transfer to telemetry today --continue dual antiplatelet therapy with aspirin and clopidogrel --continue current BRENDA, continue beta-rustam--will titrate up beta-rustam as BP allows --statin on hold in the setting of elevated LFTs--recommend trial of low-dose atorvastatin In the setting of inferolateral hypokinesis and severe circumflex disease plan for PCI to circumflex/OM tomorrow. Please keep NPO past midnight Medications: Current Inpatient Medications Medications (Trade) Dose Ordered Sig/[place] Route Start Time Stop Time Status Last Admin Dose Admin Ondansetron HCl (Zofran Inj) 4 mg Q6H PRN IV 01/31/17 15:00 03/02/17 14:59 Aspirin (Ecotrin Tab) 81 mg QAM PO 02/01/17 09:00 03/03/17 08:59 02/01/17 09:18 81 MG Clopidogrel Bisulfate (plAVix TAB) 75 mg QAM PO 02/01/17 09:00 03/03/17 08:59 02/01/17 09:18 75 MG Metoprolol Tartrate (Lopressor Tab) 25 mg Q12 PO 01/31/17 21:00 03/02/17 20:59 02/01/17 09:18 25 MG Lisinopril (Zestril Tab) 5 mg QAM PO 02/01/17 09:00 03/03/17 08:59 02/01/17 09:17 5 MG Nitroglycerin (Nitrostat Tab) 0.4 mg Q5M PRN SL 01/31/17 15:30 03/02/17 15:29 Morphine Sulfate (MoRPHine SULFATE INJ) 2 mg Q30M PRN IV 01/31/17 15:30 02/14/17 15:29 Acetaminophen (Tylenol Tab) 650 mg Q4H PRN PO 01/31/17 15:30 03/02/17 15:29 Lorazepam (Ativan Tab) 0.5 mg Q4H PRN PO 01/31/17 15:30 03/02/17 15:29 Lorazepam (Ativan Inj) 1 mg Q4H PRN IV 01/31/17 15:45 03/02/17 15:44 Thiamine HCl (Vitamin B-1 Tab) 100 mg QAM PO 02/01/17 09:00 03/03/17 08:59 02/01/17 09:18 100 MG Folic Acid (Folvite Tab) 1 mg QAM PO 02/01/17 09:00 03/03/17 08:59 02/01/17 09:18 1 MG Lab Results: 02/01/17 05:48 Red Blood Count 5.37, Mean Corpuscular Volume 86.6, Mean Corpuscular Hemoglobin 30.7, Mean Corpuscular Hemoglobin Concent 35.5, Mean Platelet Volume 11.2, Neutrophils (%) (Auto) 68.7, Lymphocytes (%) (Auto) 15.1, Monocytes (%) (Auto) 15.7, Eosinophils (%) (Auto) 0.1, Basophils (%) (Auto) 0.1, Neutrophils # (Auto ) 9.42, Lymphocytes # (Auto) 2.07, Monocytes # (Auto) 2.16, Eosinophils # (Auto ) 0.01, Basophils # (Auto) 0.02 02/01/17 05:48 Test 02/01/17 05:48 02/01/17 14:04 White Blood Count 13.72 K/uL (4.8-10.8) Red Blood Count 5.37 M/uL (4.7-6.1) Hemoglobin 16.5 g/dL (14.0-18.0) Hematocrit 46.5 % (42-52) Mean Corpuscular Volume 86.6 fL (80-100) Mean Corpuscular Hemoglobin 30.7 pg (25-34) Mean Corpuscular Hemoglobin Concent 35.5 g/dl (32-36) Platelet Count 176 K/uL (130-400) Mean Platelet Volume 11.2 fL (7.4-10.4) Neutrophils (%) (Auto) 68.7 % Lymphocytes (%) (Auto) 15.1 % Monocytes (%) (Auto) 15.7 % Eosinophils (%) (Auto) 0.1 % Basophils (%) (Auto) 0.1 % Neutrophils # (Auto) 9.42 K/uL (1.4-6.5) Lymphocytes # (Auto) 2.07 K/uL (1.2-3.4) Monocytes # (Auto) 2.16 K/uL (0.11-0.59) Eosinophils # (Auto) 0.01 K/uL (0-0.5) Basophils # (Auto) 0.02 K/uL (0-0.2) RDW Standard Deviation 41.1 fL (36.4-46.3) RDW Coefficient of Variation 13.0 % (11.5-14.5) Immature Granulocyte % (Auto) 0.3 % Immature Granulocyte # (Auto) 0.04 K/uL (0.00-0.02) Activated Partial Thromboplast Time 25.1 SECONDS (21.0-31.0) Partial Thromboplastin Ratio 1.0 Anion Gap 6.0 mmol/L (3-11) Est Creatinine Clear Calc Drug Dose 94.1 ml/min Estimated GFR () 108.8 Estimated GFR (Non- 93.8 BUN/Creatinine Ratio 14.7 (10-20) Estimated Average Glucose 134 mg/dl Hemoglobin A1c 6.3 % (4.5-5.6) Calcium Level 8.5 mg/dl (8.5-10.1) Phosphorus Level 2.0 mg/dl (2.5-4.9) Magnesium Level 2.1 mg/dl (1.8-2.4) Total Bilirubin 1.7 mg/dl (0.2-1) Direct Bilirubin 0.5 mg/dl (0-0.2) Aspartate Amino Transf (AST/SGOT) 322 U/L (15-37) Alanine Aminotransferase (ALT/SGPT) 97 U/L (12-78) Alkaline Phosphatase 61 U/L (45-117) Total Protein 6.0 gm/dl (6.4-8.2) Albumin 3.0 gm/dl (3.4-5.0) Triglycerides Level 56 mg/dl (0-150) Cholesterol Level 126 mg/dl (0-200) HDL Cholesterol 61 mg/dl LDL Cholesterol, Calculated 54 mg/dl VLDL Cholesterol, Calculated 11 mg/dl Cholesterol/HDL Ratio 2.1 Hepatitis B Surface Antigen NEG (NEG) Hepatitis C Antibody NEG (NEG) Troponin I 35.600 ng/ml (0-0.045)
--- NOTE | 2017-02-01 18:37 | Progress Note ---
Subjective Date of Service: Feb 01, 2017. Subjective Pt evaluation today including: conversation w/ patient, conversation w/ family , physical exam, chart review, lab review, review of studies feeling good now - pain free no sob no acute complaints chewing tobacco. 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: (1) Acute MT, inferior wall Status: Acute Review of Systems all other ROS otherwise negative except for as above Objective Vital Signs Date Time Temp Pulse Resp B/P (MAP) Pulse Ox O2 Delivery O2 Flow Rate FiO2 02/01/17 16:00 93 Room Air 2.0 02/01/17 15:53 37.0 90 18 85/61 (69) 93 Room Air 02/01/17 11:37 37.0 82 18 89/64 (72) 94 Room Air 02/01/17 10:00 90 20 107/65 (79) 97 Room Air 02/01/17 08:00 95 Room Air 02/01/17 08:00 36.7 107 20 107/74 (85) 95 Room Air 02/01/17 06:01 84 21 103/74 (84) 93 02/01/17 06:00 81 22 93 02/01/17 05:30 37.1 02/01/17 05:00 76 21 101/75 (84) 93 02/01/17 04:04 95 Room Air 02/01/17 04:00 83 21 101/62 (75) 95 02/01/17 03:00 72 21 111/75 (87) 94 02/01/17 02:01 70 21 93/63 (73) 93 02/01/17 02:00 71 21 93 02/01/17 01:00 75 19 88/53 (65) 95 02/01/17 00:01 71 21 85/50 (62) 93 02/01/17 00:00 37.5 72 22 93 02/01/17 00:00 95 Room Air 01/31/17 23:00 75 20 103/59 (74) 95 01/31/17 22:00 66 20 90/67 (75) 94 01/31/17 21:01 68 21 93/66 (75) 94 01/31/17 21:00 68 21 94 01/31/17 20:00 36.9 68 21 109/71 (84) 95 01/31/17 20:00 95 Room Air 01/31/17 19:31 80 26 93/67 (76) 96 01/31/17 19:16 68 21 101/69 (80) 95 01/31/17 19:01 67 20 97/62 (74) 95 01/31/17 19:00 71 20 95 Physical Exam General Appearance: no apparent distress Eyes: EOMI ENT: hearing grossly normal Neck: trachea midline Respiratory/Chest: no respiratory distress, no accessory muscle use Extremities: normal range of motion Neurologic/Psychiatric: 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 II-XII nml as tested, alert, normal mood/affect Skin: normal color, warm/dry Laboratory Results Last 24 Hours Test 02/01/17 05:48 02/01/17 14:04 White Blood Count 13.72 K/uL Red Blood Count 5.37 M/uL Hemoglobin 16.5 g/dL Hematocrit 46.5 % Mean Corpuscular Volume 86.6 fL Mean Corpuscular Hemoglobin 30.7 pg Mean Corpuscular Hemoglobin Concent 35.5 g/dl Platelet Count 176 K/uL Mean Platelet Volume 11.2 fL Neutrophils (%) (Auto) 68.7 % Lymphocytes (%) (Auto) 15.1 % Monocytes (%) (Auto) 15.7 % Eosinophils (%) (Auto) 0.1 % Basophils (%) (Auto) 0.1 % Neutrophils # (Auto) 9.42 K/uL Lymphocytes # (Auto) 2.07 K/uL Monocytes # (Auto) 2.16 K/uL Eosinophils # (Auto) 0.01 K/uL Basophils # (Auto) 0.02 K/uL RDW Standard Deviation 41.1 fL RDW Coefficient of Variation 13.0 % Immature Granulocyte % (Auto) 0.3 % Immature Granulocyte # (Auto) 0.04 K/uL Activated Partial Thromboplast Time 25.1 SECONDS Partial Thromboplastin Ratio 1.0 Sodium Level 134 mmol/L Potassium Level 3.9 mmol/L Chloride Level 103 mmol/L Carbon Dioxide Level 25 mmol/L Anion Gap 6.0 mmol/L Blood Urea Nitrogen 12 mg/dl Creatinine 0.84 mg/dl Est Creatinine Clear Calc Drug Dose 94.1 ml/min Estimated GFR () 108.8 Estimated GFR (Non- 93.8 BUN/Creatinine Ratio 14.7 Random Glucose 124 mg/dl Estimated Average Glucose 134 mg/dl Hemoglobin A1c 6.3 % Calcium Level 8.5 mg/dl Phosphorus Level 2.0 mg/dl Magnesium Level 2.1 mg/dl Total Bilirubin 1.7 mg/dl Direct Bilirubin 0.5 mg/dl Aspartate Amino Transf (AST/SGOT) 322 U/L Alanine Aminotransferase (ALT/SGPT) 97 U/L Alkaline Phosphatase 61 U/L Troponin I 56.400 ng/ml 35.600 ng/ml Total Protein 6.0 gm/dl Albumin 3.0 gm/dl Triglycerides Level 56 mg/dl Cholesterol Level 126 mg/dl HDL Cholesterol 61 mg/dl LDL Cholesterol, Calculated 54 mg/dl VLDL Cholesterol, Calculated 11 mg/dl Cholesterol/HDL Ratio 2.1 Hepatitis B Surface Antigen NEG Hepatitis C Antibody NEG Assessment and Plan STEMI -s/p RCA stenting -for repeat PCI tomorrow -troponin trending down and symptoms have totally resolved -continue med management - will add atorvastatin and follow CAD -as above -counselled extensively on lifestyle change including exercise, eating habits, tobacco cessation --> will discuss meds tomorrow impaired glucose tolerance -A1c 6.3% but consumes a large amount of concentrated carbs/starches/sugars -lifestyle change discussed extensively elevated LFTs -almost certainly lifestyle (EtOH and probably fatty liver from diet) related -lifestyle change DVT proph -ambulation and antiplatelets as per cardiology management
[2017-02-01] MEDS: ATORVASTATIN 40 MG TAB PO SCH (19:57)
[2017-02-01] MEDS ORDERED: SODIUM CHLORIDE 0.9% 500ML 500 ML IV ONE (21:45)
[2017-02-01] MEDS ORDERED: POTASSIUM CHLORIDE 10 MEQ TABCR PO STA (21:52)
[2017-02-01] MEDS ORDERED: SODIUM CHLORIDE 0.9% 1000ML 1,000 ML IV ONE (22:00)
--- NOTE | 2017-02-01 22:15 | DIAGNOSTIC IMAGING REPORT ---
SINGLE VIEW CHEST CLINICAL HISTORY: Hypotension status post catheterization. FINDINGS: An AP, portable, upright chest radiograph is compared to study dated 01/31/2017. The examination is degraded by portable technique and patient rotation. The heart is top normal for projection. The pulmonary vasculature is noncongested. The lungs and pleural spaces are clear. No pneumothorax is seen. The bony thorax is grossly intact. IMPRESSION: No acute cardiopulmonary abnormality. Electronically signed by: Prasad Shin M.D. 02/01/2017 10:14 PM Dictated Date/Time: 02/01/2017 10:13 PM
[2017-02-01 22:16] LABS: BASO % 0.3 %; BASO ABS # 0.03 K/uL (0-0.2); EOS % 0.3 %; HEMATOCRIT 41.4 % (42-52); IG% 0.3 %; LYMPH % 27.7 %; LYMPH ABS # 3.29 K/uL (1.2-3.4); MEAN CELL VOLUME 86.3 fL (80-100); MEAN CORPUSCULAR HEMOGLOBIN 30.4 pg (25-34); MEAN PLATELET VOLUME 10.8 fL (7.4-10.4); MONO % 16.3 %; NEUT % 55.1 %; PLATELET COUNT 149 K/uL (130-400); WHITE BLOOD COUNT 11.87 K/uL (4.8-10.8)
[2017-02-01 22:22] LABS: COMPLETE YES; MEAN CORPUSCULAR HGB CONC 35.3 g/dl (32-36)
[2017-02-01 22:43] LABS: ALB/GLOB RATIO 0.9 (0.9-2); BUN/CREATININE RATIO 19.1 (10-20); CALCIUM 8.2 mg/dl (8.5-10.1); CREATININE 0.97 mg/dl (0.60-1.40); POTASSIUM 3.8 mmol/L (3.5-5.1)
[2017-02-02] VITALS (16 sets, daily range): BP systolic 72–111; BP diastolic 40–71; PULSE 53–97; TEMP 36.5–37.4; O2SAT 91–98; Ht 177.8 cm; Wt 79.8 kg
--- NOTE | 2017-02-02 02:14 | Progress Note ---
Progress Note Date of Service Feb 02, 2017. Progress Note informed by RN of asymptomatic hypotensive episodes with MAP approx 50, discussed with Dr Morton and he was made aware. Fluid responsive however remained hypotensive with a MAP of > 65. EKG, CXR and labs ordered. Plan to monitor bp hourly until am, discussed with RN
[2017-02-02] MEDS ORDERED: SODIUM CHLORIDE 0.9% 500ML 500 ML IV STA (04:30)
[2017-02-02] MEDS ORDERED: NURSING VERBAL MED ORDER ONE (04:30)
[2017-02-02 06:22] LABS: BASO % 0.2 %; BASO ABS # 0.02 K/uL (0-0.2); COMPLETE YES; EOS % 0.3 %; HEMATOCRIT 41.5 % (42-52); IG% 0.5 %; LYMPH % 19.7 %; LYMPH ABS # 2.08 K/uL (1.2-3.4); MEAN CELL VOLUME 87.2 fL (80-100); MEAN CORPUSCULAR HEMOGLOBIN 30.7 pg (25-34); MEAN CORPUSCULAR HGB CONC 35.2 g/dl (32-36); MEAN PLATELET VOLUME 10.7 fL (7.4-10.4); MONO % 14.2 %; NEUT % 65.1 %; PLATELET COUNT 138 K/uL (130-400); RED BLOOD COUNT 4.76 M/uL (4.7-6.1); WHITE BLOOD COUNT 10.58 K/uL (4.8-10.8)
[2017-02-02 06:40] LABS: BUN/CREATININE RATIO 19.8 (10-20); CALCIUM 8.1 mg/dl (8.5-10.1); CREATININE 0.84 mg/dl (0.60-1.40); POTASSIUM 4.5 mmol/L (3.5-5.1)
[2017-02-02 06:47] LABS: ALB/GLOB RATIO 0.9 (0.9-2)
[2017-02-02] MEDS: ASPIRIN 81 MG ECTAB PO SCH (08:41)
[2017-02-02] MEDS: CLOPIDOGREL BISULFATE 75 MG TAB PO SCH (08:41)
[2017-02-02] MEDS: METOPROLOL TARTRATE 25 MG TAB PO SCH ×2 (09:00→21:05)
[2017-02-02] MEDS: THIAMINE HCL 100 MG TAB PO SCH (09:00)
[2017-02-02] MEDS: LISINOPRIL 5 MG TAB PO SCH (09:00)
--- NOTE | 2017-02-02 10:48 | Medical Student: [facility] ---
Med Student Progress Note Date of Service Feb 01, 2017. Subjective Pt evaluation today including: conversation w/ patient, conversation w/ family , physical exam, chart review, lab review, review of studies Voiding: no voiding problems Avtar is a 61-year-old male with no reported past medical history who presented to the ER on the morning of 02/01 after a 14-hour history of 10/10 chest pain, shortness of breath, diaphoresis, and nausea. 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 He did not take any measures to relieve the pain. That evening he took an ASA, went to sleep, and woke up with 5 /10 chest pain and decreased intensity of his symptoms and came to the ER. EKG showed acute inferior wall infarct and patient was taken to the cytology laboratory manager, where two drug-eluting stents were placed. Today he was seen at the bedside with his . He was resting comfortably and was in no acute distress. He denied any chest pain, SOB, diaphoresis, or nausea/ vomiting. He has not yet had a BM but has had no problems with urination. Denies having an appetite but is tolerating meals well. Has no complaints at this time. Review of Systems Constitutional: + see HPI Respiratory: + see HPI Cardiac: + see HPI Abdomen: + see HPI Male : + see HPI Objective Vital Signs Date Time Temp Pulse Resp B/P (MAP) Pulse Ox O2 Delivery O2 Flow Rate FiO2 02/02/17 08:19 77 18 89/61 (70) 97 Nasal Cannula 2.0 02/02/17 06:00 36.6 53 20 78/56 96 Nasal Cannula 3.0 02/02/17 06:00 54 20 78/56 (63) 96 Nasal Cannula 3.0 02/02/17 05:00 56 20 85/57 (66) 96 Nasal Cannula 3.0 02/02/17 04:39 60 21 90/52 (65) 96 Nasal Cannula 3.0 02/02/17 04:00 98 Nasal Cannula 3.0 02/02/17 04:00 59 19 72/40 (51) 96 Nasal Cannula 3.0 02/02/17 03:36 36.6 58 18 96 Nasal Cannula 2.0 02/02/17 03:00 60 20 82/55 (64) 91 Nasal Cannula 3.0 02/02/17 01:00 57 23 76/52 (60) 95 Nasal Cannula 3.0 02/02/17 00:23 37.4 69 18 78/50 (59) 95 Nasal Cannula 2.5 02/02/17 00:00 36.5 63 17 86/53 (64) 94 Nasal Cannula 3.0 02/02/17 00:00 98 Nasal Cannula 3.0 02/01/17 21:57 76 20 77/50 (59) 97 Nasal Cannula 3.0 02/01/17 21:50 75 21 74/52 (59) 96 Nasal Cannula 3.0 02/01/17 21:49 73 78/49 (59) 96 Nasal Cannula 3.0 02/01/17 20:00 98 Nasal Cannula 3.0 02/01/17 20:00 36.5 86 18 73/53 (60) 94 Room Air 02/01/17 16:00 93 Room Air 2.0 02/01/17 15:53 37.0 90 18 85/61 (69) 93 Room Air 02/01/17 11:37 37.0 82 18 89/64 (72) 94 Room Air Physical Exam General Appearance: WD/WN, no apparent distress Eyes: bilateral eyes normal inspection, bilateral eyes PERRL, bilateral eyes EOMI Neck: supple, no adenopathy, no JVD, no carotid bruits Respiratory/Chest: chest non-tender, lungs clear, normal breath sounds, no respiratory distress, no accessory muscle use Cardiovascular: regular rate, rhythm, no edema, no gallop, no JVD, no murmur Abdomen: normal bowel sounds, non tender, soft, + distended Extremities: no pedal edema, no calf tenderness Neurologic/Psychiatric: alert, normal mood/affect, oriented x 3 Skin: normal color, warm/dry, no rash Lymphatic: no adenopathy Laboratory Results Last 24 Hours Test 02/01/17 14:04 02/01/17 20:42 02/01/17 21:57 02/02/17 05:42 Troponin I 35.600 ng/ml 28.200 ng/ml Bedside Glucose 124 mg/dl White Blood Count 11.87 K/uL 10.58 K/uL Red Blood Count 4.80 M/uL 4.76 M/uL Hemoglobin 14.6 g/dL 14.6 g/dL Hematocrit 41.4 % 41.5 % Mean Corpuscular Volume 86.3 fL 87.2 fL Mean Corpuscular Hemoglobin 30.4 pg 30.7 pg Mean Corpuscular Hemoglobin Concent 35.3 g/dl 35.2 g/dl Platelet Count 149 K/uL 138 K/uL Mean Platelet Volume 10.8 fL 10.7 fL Neutrophils (%) (Auto) 55.1 % 65.1 % Lymphocytes (%) (Auto) 27.7 % 19.7 % Monocytes (%) (Auto) 16.3 % 14.2 % Eosinophils (%) (Auto) 0.3 % 0.3 % Basophils (%) (Auto) 0.3 % 0.2 % Neutrophils # (Auto) 6.54 K/uL 6.90 K/uL Lymphocytes # (Auto) 3.29 K/uL 2.08 K/uL Monocytes # (Auto) 1.94 K/uL 1.50 K/uL Eosinophils # (Auto) 0.03 K/uL 0.03 K/uL Basophils # (Auto) 0.03 K/uL 0.02 K/uL RDW Standard Deviation 41.1 fL 42.1 fL RDW Coefficient of Variation 12.9 % 13.1 % Immature Granulocyte % (Auto) 0.3 % 0.5 % Immature Granulocyte # (Auto) 0.04 K/uL 0.05 K/uL Sodium Level 132 mmol/L 135 mmol/L Potassium Level 3.8 mmol/L 4.5 mmol/L Chloride Level 100 mmol/L 105 mmol/L Carbon Dioxide Level 24 mmol/L 24 mmol/L Anion Gap 8.0 mmol/L 7.0 mmol/L Blood Urea Nitrogen 19 mg/dl 17 mg/dl Creatinine 0.97 mg/dl 0.84 mg/dl Est Creatinine Clear Calc Drug Dose 81.5 ml/min 94.1 ml/min Estimated GFR () 96.6 108.8 Estimated GFR (Non- 83.3 93.8 BUN/Creatinine Ratio 19.1 19.8 Random Glucose 102 mg/dl 99 mg/dl Calcium Level 8.2 mg/dl 8.1 mg/dl Total Bilirubin 1.3 mg/dl 1.3 mg/dl Aspartate Amino Transf (AST/SGOT) 147 U/L 113 U/L Alanine Aminotransferase (ALT/SGPT) 69 U/L 58 U/L Alkaline Phosphatase 55 U/L 47 U/L Total Protein 5.7 gm/dl 5.5 gm/dl Albumin 2.7 gm/dl 2.6 gm/dl Globulin 3.0 gm/dl 2.9 gm/dl Albumin/Globulin Ratio 0.9 0.9 Activated Partial Thromboplast Time 26.1 SECONDS Partial Thromboplastin Ratio 1.0 Test 02/02/17 07:10 Bedside Glucose 93 mg/dl Assessment and Plan Assessment and Plan: Avtar is a 61-year-old male with no reported past medical history who presented with complaints of chest pain, SOB, nausea, and diaphoresis. His EKG showed an acute inferior wall infarct and he was taken to the cytology laboratory manager and had two drug eluting stents placed in the RCA. 1) Myocardial infarction -pharmacologic management as an inpatient should include the following a. beta rustam b. aspirin and clopidogrel c. atorvastatin d. lisinopril e. nitrates prn -marriage counselor minister on lifestyle changes a. dietary changes - cut back on soda, sugary foods, starchy foods b. exercise - build up to 20-30 min continuous exercise c. 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
--- NOTE | 2017-02-02 17:23 | Progress Note ---
Subjective Date of Service: Feb 02, 2017. Subjective Pt evaluation today including: conversation w/ patient, conversation w/ family , physical exam, chart review, lab review, review of inpatient medication list feeling good. BP was low through the night but relates to BP meds. motivated to make lifestyle change for [facility] again tomorrow repeat stenting no other new complaints no current CP Problem List Medical Problems: (1) Acute AL, inferior wall Status: Acute Review of Systems all other ROS otherwise negative except for as above Objective Vital Signs Date Time Temp Pulse Resp B/P (MAP) Pulse Ox O2 Delivery O2 Flow Rate FiO2 02/02/17 16:00 Nasal Cannula 2.0 02/02/17 15:43 36.5 90 20 111/68 (82) 98 Nasal Cannula 2.0 02/02/17 12:18 36.9 82 17 95/65 (75) 97 Room Air 02/02/17 12:04 97 Nasal Cannula 3.0 02/02/17 08:19 77 18 89/61 (70) 97 Nasal Cannula 2.0 02/02/17 08:00 97 Nasal Cannula 3.0 02/02/17 06:00 36.6 53 20 78/56 96 Nasal Cannula 3.0 02/02/17 06:00 54 20 78/56 (63) 96 Nasal Cannula 3.0 02/02/17 05:00 56 20 85/57 (66) 96 Nasal Cannula 3.0 02/02/17 04:39 60 21 90/52 (65) 96 Nasal Cannula 3.0 02/02/17 04:00 98 Nasal Cannula 3.0 02/02/17 04:00 59 19 72/40 (51) 96 Nasal Cannula 3.0 02/02/17 03:36 36.6 58 18 96 Nasal Cannula 2.0 02/02/17 03:00 60 20 82/55 (64) 91 Nasal Cannula 3.0 02/02/17 01:00 57 23 76/52 (60) 95 Nasal Cannula 3.0 02/02/17 00:23 37.4 69 18 78/50 (59) 95 Nasal Cannula 2.5 02/02/17 00:00 36.5 63 17 86/53 (64) 94 Nasal Cannula 3.0 02/02/17 00:00 98 Nasal Cannula 3.0 02/01/17 21:57 76 20 77/50 (59) 97 Nasal Cannula 3.0 02/01/17 21:50 75 21 74/52 (59) 96 Nasal Cannula 3.0 02/01/17 21:49 73 78/49 (59) 96 Nasal Cannula 3.0 02/01/17 20:00 98 Nasal Cannula 3.0 02/01/17 20:00 36.5 86 18 73/53 (60) 94 Room Air Physical Exam General Appearance: no apparent distress Eyes: EOMI ENT: hearing grossly normal Neck: trachea midline Respiratory/Chest: no respiratory distress, no accessory muscle use 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, alert, normal mood/affect Skin: normal color, warm/dry Laboratory Results Last 24 Hours Test 02/01/17 20:42 02/01/17 21:57 02/02/17 05:42 02/02/17 07:10 Bedside Glucose 124 mg/dl 93 mg/dl White Blood Count 11.87 K/uL 10.58 K/uL Red Blood Count 4.80 M/uL 4.76 M/uL Hemoglobin 14.6 g/dL 14.6 g/dL Hematocrit 41.4 % 41.5 % Mean Corpuscular Volume 86.3 fL 87.2 fL Mean Corpuscular Hemoglobin 30.4 pg 30.7 pg Mean Corpuscular Hemoglobin Concent 35.3 g/dl 35.2 g/dl Platelet Count 149 K/uL 138 K/uL Mean Platelet Volume 10.8 fL 10.7 fL Neutrophils (%) (Auto) 55.1 % 65.1 % Lymphocytes (%) (Auto) 27.7 % 19.7 % Monocytes (%) (Auto) 16.3 % 14.2 % Eosinophils (%) (Auto) 0.3 % 0.3 % Basophils (%) (Auto) 0.3 % 0.2 % Neutrophils # (Auto) 6.54 K/uL 6.90 K/uL Lymphocytes # (Auto) 3.29 K/uL 2.08 K/uL Monocytes # (Auto) 1.94 K/uL 1.50 K/uL Eosinophils # (Auto) 0.03 K/uL 0.03 K/uL Basophils # (Auto) 0.03 K/uL 0.02 K/uL RDW Standard Deviation 41.1 fL 42.1 fL RDW Coefficient of Variation 12.9 % 13.1 % Immature Granulocyte % (Auto) 0.3 % 0.5 % Immature Granulocyte # (Auto) 0.04 K/uL 0.05 K/uL Sodium Level 132 mmol/L 135 mmol/L Potassium Level 3.8 mmol/L 4.5 mmol/L Chloride Level 100 mmol/L 105 mmol/L Carbon Dioxide Level 24 mmol/L 24 mmol/L Anion Gap 8.0 mmol/L 7.0 mmol/L Blood Urea Nitrogen 19 mg/dl 17 mg/dl Creatinine 0.97 mg/dl 0.84 mg/dl Est Creatinine Clear Calc Drug Dose 81.5 ml/min 94.1 ml/min Estimated GFR () 96.6 108.8 Estimated GFR (Non- 83.3 93.8 BUN/Creatinine Ratio 19.1 19.8 Random Glucose 102 mg/dl 99 mg/dl Calcium Level 8.2 mg/dl 8.1 mg/dl Total Bilirubin 1.3 mg/dl 1.3 mg/dl Aspartate Amino Transf (AST/SGOT) 147 U/L 113 U/L Alanine Aminotransferase (ALT/SGPT) 69 U/L 58 U/L Alkaline Phosphatase 55 U/L 47 U/L Troponin I 28.200 ng/ml Total Protein 5.7 gm/dl 5.5 gm/dl Albumin 2.7 gm/dl 2.6 gm/dl Globulin 3.0 gm/dl 2.9 gm/dl Albumin/Globulin Ratio 0.9 0.9 Activated Partial Thromboplast Time 26.1 SECONDS Partial Thromboplastin Ratio 1.0 Test 02/02/17 11:09 02/02/17 15:51 Bedside Glucose 85 mg/dl 105 mg/dl Assessment and Plan STEMI -s/p RCA stenting, no further angina, and is stable -for repeat PCI tomorrow -troponin trending down and symptoms have totally resolved -continue med management CAD -as above -counselled extensively on lifestyle change including exercise, eating habits, tobacco cessation on 02/01, counselled extensively (med by med with rationale and evidence) on med management and benefits/side effects/etc today -dual antiplatelets, have to hold beta rustam due to BP, hopefully low dose lisinopril, atorvastatin, prn nitro impaired glucose tolerance -A1c 6.3% but consumes a large amount of concentrated carbs/starches/sugars -lifestyle change discussed extensively 02/01 elevated LFTs -almost certainly lifestyle (EtOH and probably fatty liver from diet) related -lifestyle change discussed -also frankly and directly discussed EtOH related LFT elevation and monitoring with statin, but wtih STEMI benefits of statin still appear to outweigh the risks as long as he is monitored closely and continues to try to change drinking habits DVT proph -ambulation and antiplatelets as per cardiology management
[2017-02-02] MEDS: ATORVASTATIN 40 MG TAB PO SCH (21:06)
[2017-02-03] VITALS (13 sets, daily range): BP systolic 86–111; BP diastolic 58–82; PULSE 78–98; TEMP 36.6–37.5; O2SAT 9–97
[2017-02-03 06:12] LABS: BASO % 0.2 %; BASO ABS # 0.02 K/uL (0-0.2); COMPLETE YES; EOS % 0.5 %; HEMATOCRIT 43.3 % (42-52); IG% 0.4 %; LYMPH % 24.6 %; LYMPH ABS # 2.11 K/uL (1.2-3.4); MEAN CELL VOLUME 86.9 fL (80-100); MEAN CORPUSCULAR HEMOGLOBIN 30.5 pg (25-34); MEAN CORPUSCULAR HGB CONC 35.1 g/dl (32-36); MEAN PLATELET VOLUME 10.7 fL (7.4-10.4); MONO % 13.6 %; NEUT % 60.7 %; PLATELET COUNT 144 K/uL (130-400); RED BLOOD COUNT 4.98 M/uL (4.7-6.1); WHITE BLOOD COUNT 8.56 K/uL (4.8-10.8)
[2017-02-03 06:58] LABS: BUN/CREATININE RATIO 22.3 (10-20); CALCIUM 8.7 mg/dl (8.5-10.1); CREATININE 0.8 mg/dl (0.60-1.40); POTASSIUM 4.1 mmol/L (3.5-5.1)
[2017-02-03] MEDS ORDERED: HEPARIN SOD (PORCINE) 1000 UNIT/ML 10 ML VIAL ONE (07:52)
[2017-02-03] MEDS ORDERED: NiCARDipine HCL INJ 2.5 MG/ML 10 ML AMP ONE (07:52)
[2017-02-03] MEDS ORDERED: FENTANYL CITRATE INJ 50 MCG/1 ML 2 ML VIAL ONE (07:52)
[2017-02-03] MEDS ORDERED: MIDAZOLAM HCL 1 MG/ML 2ML VIAL ONE (07:52)
[2017-02-03] MEDS ORDERED: NITROGLYCERIN/D5W 100MCG/ML 20ML SYR ONE (07:53)
[2017-02-03] MEDS: METOPROLOL TARTRATE 25 MG TAB PO SCH ×2 (09:00→20:26)
[2017-02-03] MEDS ORDERED: CLOPIDOGREL BISULFATE 300 MG TAB PO ONE (09:14)
[2017-02-03] MEDS: ASPIRIN 81 MG ECTAB PO SCH (09:19)
[2017-02-03] MEDS: CLOPIDOGREL BISULFATE 75 MG TAB PO SCH (09:19)
--- NOTE | 2017-02-03 09:25 | Procedure Note ---
Pre-Mod Sedation Assessment General Date of Moderate Sedation: Feb 03, 2017. Vital Signs: Vital Signs Past 12 Hours Date Time Temp Pulse Resp B/P (MAP) Pulse Ox O2 Delivery O2 Flow Rate FiO2 02/03/17 09:20 Room Air 02/03/17 09:15 60 16 130/79 (96) 95 Room Air 02/03/17 07:35 36.6 78 16 105/66 (79) 95 Room Air 02/03/17 04:00 Nasal Cannula 2.0 02/03/17 03:20 36.6 82 18 95/70 (78) 97 Room Air 02/03/17 00:03 37.5 84 18 86/58 (67) 92 Room Air 02/03/17 00:01 Nasal Cannula 2.0 Review Cardiovascular: regular rate, rhythm, no edema Abdomen: normal bowel sounds, non tender Lungs: chest non-tender, lungs clear Airway Class: III Pre-Sedation Airway Assessment Oral Cavity: Dentures Able to Visualize Vocal Cords: No Short Thick Neck: No Hx of Sleep Apnea: No Smoking Status: Former Smoker Mallampati Classification: Class III ASA Classification: Class III Procedure Planning Contraindications-for Mod Sed: None Yes Notes The planned sedation has been discussed with the patient and consent obtained. I have identified the patient, determined the appropriateness of sedation and have assessed the patient immediately prior to the procedure. All medicine(s) and interventions are by my order.
--- NOTE | 2017-02-03 09:25 | Procedure Note ---
Post-Mod Sedation Assessment General Date of Moderate Sedation Feb 03, 2017. Vital Signs: Vital Signs Past 12 Hours Date Time Temp Pulse Resp B/P (MAP) Pulse Ox O2 Delivery O2 Flow Rate FiO2 02/03/17 09:20 Room Air 02/03/17 09:15 60 16 130/79 (96) 95 Room Air 02/03/17 07:35 36.6 78 16 105/66 (79) 95 Room Air 02/03/17 04:00 Nasal Cannula 2.0 02/03/17 03:20 36.6 82 18 95/70 (78) 97 Room Air 02/03/17 00:03 37.5 84 18 86/58 (67) 92 Room Air 02/03/17 00:01 Nasal Cannula 2.0 Review - Discharge Criteria Vital Signs Stable: Yes Alert/Oriented/Conversant: Yes Returned to Baseline Mental St: Yes Nausea Absent/Minimal: Yes Pain/Discomfort/Absent/Minimal: Yes Normal/Baseline Respirations: Yes Active Bleeding?: No Pt Received D/C Instructions: N/A Prescriptions Given: None Specific Proced. D/C Criteria Distal Pulses Present (Cardiac: Yes Groin site assessed-Card Cath: N/A Voided Prior To Discharge: N/A Discharged Patients Adult Escort/Transportation: Yes
--- NOTE | 2017-02-03 09:50 | Cardiac Catheterization ---
Procedure Note Procedure Date Feb 03, 2017. Pre-Procedure Diagnosis Acute Coronary Syndrome (Staged PCI of Circumflex) AUC Score 7 Post-Procedure Diagnosis Severe CAD, Successful PCI Procedure(s) Performed Coronary Angiography, Drug Eluting Stent Junior Programmer Analyst Praveen Capacitor Pack Press Operator(s) Andrew Estimated Blood Loss 20 Medication(s) Clopidogrel, Fentanyl, Heparin, Nicardipine, Nitroglycerin, Versed, Lidocaine 1% Summary of Findings Indication: Staged PCI of Circumflex. Previously treated for inferior STEMI with 2 CANDI to RCA Access: 6Fr right PRECAST MOLDER Catheters: EBU 3.5 guide -- PCI -- Antithrombotic therapy: Heparin, Clopidogrel Procedure: LM cannulated with EBU 3.5 guide Long whisper wire placed across lesion into distal OM2 Circumflex lesion predilated with 2.0 compliant balloon Dilated lesion stented with 2 overlapping CANDI (2.25 x 15 [place], 2.25 x 18 [place]) Stents post-dilated with stent balloon IC vasodilators administered for spasm Post procedure JOSE A 3 flow, stent well expanded with minimal residual stenosis and no apparent cardiac complications. Arterial Closure: TR Band Summary: 1. Successful staged PCI of distal circumflex/OM2 with 2 overlapping CANDI (2.25 x 15 [place], 2.25 x 18 [place]). Recommendations: Return to PCU Reloaded with clopidogrel 300mg in laboratory chemist Continue DAPT for at least 1 year. Continue beta-rustam/BRENDA as BP allows Continue current statin Consult cardiac Rehab Hemodynamics Rest Ao: 91/54/71 Final Ao: 125/66/91 LV: -- Recommendations PCI without planned CABG Specimens None Radiation Exposure (mGy) 3180 Contrast (mls) 132 NS Fluids (cc crystalloids) 155 Visi Drains None Anesthesia Moderate Procedural Complication(s) None Disposition ICU ACC Data Cardiac Status Clinical evaluation leading to the procedure CAD Presntation: Non STEMI Anginal Classification: CCS IV Heart Failure: No, NYHA Class: CCS I Cardiogenic Shock w/in 24Hrs: No Cardiac Arrest w/in 24Hrs: No Imaging studies past 6 months: Yes Stress studies past 6 months: No Standard Exercise Stress Test: No Stress Echocardiogram: No Stress Testing w/SPECT MPI: No Diagnostic Status: Elective Closure Device Percutaneous Entry Location: Femoral Closure Device: Mynx Recommendations: PCI without planned CABG PCI Indication: Staged PCI Lesion Segment Name: Distal Circumflex/OM2 Culprit Artery: No Stenosis Prior to Rx (%): 90% Chronic Total Occlusion: No IVUS: No FFR: No Pre-Procedure JOSE A Flow: 3 Previously Treated Lesion: No Lesion Complexity: Non-High/Non-C Lesion Length (mm): 25 Thrombus Present: No Bifurcation Lesion: No Guidewire Across Lesion: Yes Guidewire: Stenosis Post-Procedure (%): 0 Post-Procedure JOSE A Flow: 3 Device(s) Deployed: Yes Intraprocedure Events Significant Dissection: No Perforation: No
[2017-02-03] MEDS ORDERED: SODIUM CHLORIDE 0.9% 1000ML 1,000 ML IV SCH (10:00)
[2017-02-03] MEDS: LISINOPRIL 5 MG TAB PO SCH (10:44)
[2017-02-03] MEDS: THIAMINE HCL 100 MG TAB PO SCH (10:44)
--- NOTE | 2017-02-03 12:43 | Cardiology Follow-Up ---
Subjective Subjective Date of Service: Feb 03, 2017. Pt evaluation today including: conversation w/ patient, conversation w/ family , physical exam, chart review, lab review, review of studies, conversation w/ consumer experience consultant (a), review of inpatient medication list Additional Details: Patient post PCI to circumflex this AM. Tolerated procedure well. No new symptoms. Tele unremarkable. Problem List Medical Problems: (1) Acute [place], inferior wall Status: Acute Review of Systems Constitutional: + see HPI Respiratory: + see HPI Cardiac: + see HPI, + claudication Abdomen: + see HPI Male : + see HPI Heme: No abnormal bleeding/bruising Endo: No fatigue Skin: No rash Objective Vital Signs Last Vital Signs Documentation Date Time Temp Pulse Resp B/P (MAP) Pulse Ox O2 Delivery O2 Flow Rate FiO2 02/03/17 12:04 Room Air 02/03/17 11:30 98 18 101/82 (88) 94 02/03/17 07:35 36.6 02/03/17 04:00 2.0 Physical Exam: General Appearance: no apparent distress Eyes: bilateral eyes normal inspection, bilateral eyes PERRL, bilateral eyes EOMI ENT: hearing grossly normal Neck: trachea midline Respiratory/Chest: no respiratory distress, no accessory muscle use Cardiovascular: regular rate, rhythm, no edema Abdomen: normal bowel sounds, non tender, soft Extremities: no pedal edema, no calf tenderness, + pertinent finding (right radial artery with no complications. right femoral artery no ecchymosis/ hematoma) Neurologic/Psychiatric: district loss prevention manager II-XII nml as tested, alert, normal mood/affect Skin: normal color, warm/dry Lymphatic: no adenopathy Assessment and Plan 1. Inferior STEMI--post PPCI 2 CANDI to RCA 2. Multivessel coronary artery disease with 80-90 percent distal circumflex/OM2 -- now post PCI with CANDI x 2 to LCx/OM2 3. Preserved LV function inferior, inferolateral wall motion abnormalities 4. Elevated LFTs 5. History of alcohol abuse Patient doing well post procedure. --continue dual antiplatelet therapy with aspirin and clopidogrel --continue current beta-rustam; follow BPs if still low today -- reduce lisinopril to 2.5 on discharge or can hold and will start as an outpatient. --on high-intensity statin -- From a cardiac standpoint likely OK for d/c tomorrow. -- F/u with me in 2-3 weeks. -- [facility] medicine team care. Medications: Current Inpatient Medications Medications (Trade) Dose Ordered Sig/Suyapa Route Start Time Stop Time Status Last Admin Dose Admin Ondansetron HCl (Zofran Inj) 4 mg Q6H PRN IV 01/31/17 15:00 03/02/17 14:59 Aspirin (Ecotrin Tab) 81 mg QAM PO 02/01/17 09:00 03/03/17 08:59 02/03/17 09:19 81 MG Clopidogrel Bisulfate (plAVix TAB) 75 mg QAM PO 02/01/17 09:00 03/03/17 08:59 02/03/17 09:19 75 MG Metoprolol Tartrate (Lopressor Tab) 25 mg Q12 PO 01/31/17 21:00 03/02/17 20:59 02/02/17 21:05 25 MG Lisinopril (Zestril Tab) 5 mg QAM PO 02/01/17 09:00 03/03/17 08:59 02/03/17 10:44 5 MG Nitroglycerin (Nitrostat Tab) 0.4 mg Q5M PRN SL 01/31/17 15:30 03/02/17 15:29 Morphine Sulfate (MoRPHine SULFATE INJ) 2 mg Q30M PRN IV 01/31/17 15:30 02/14/17 15:29 Acetaminophen (Tylenol Tab) 650 mg Q4H PRN PO 01/31/17 15:30 03/02/17 15:29 02/02/17 23:45 650 MG Lorazepam (Ativan Tab) 0.5 mg Q4H PRN PO 01/31/17 15:30 03/02/17 15:29 Lorazepam (Ativan Inj) 1 mg Q4H PRN IV 01/31/17 15:45 03/02/17 15:44 Thiamine HCl (Vitamin B-1 Tab) 100 mg QAM PO 02/01/17 09:00 03/03/17 08:59 02/03/17 10:44 100 MG Folic Acid (Folvite Tab) 1 mg QAM PO 02/01/17 09:00 03/03/17 08:59 02/03/17 10:44 1 MG Atorvastatin Calcium (Lipitor Tab) 40 mg HS PO 02/01/17 21:00 03/03/17 20:59 02/02/17 21:06 40 MG Sodium Chloride 1,000 ml @ 125 mls/hr Q8H IV 02/03/17 10:00 02/03/17 15:59 02/03/17 10:45 125 MLS/HR Lab Results: 02/03/17 06:02 Red Blood Count 4.98, Mean Corpuscular Volume 86.9, Mean Corpuscular Hemoglobin 30.5, Mean Corpuscular Hemoglobin Concent 35.1, Mean Platelet Volume 10.7, Neutrophils (%) (Auto) 60.7, Lymphocytes (%) (Auto) 24.6, Monocytes (%) (Auto) 13.6, Eosinophils (%) (Auto) 0.5, Basophils (%) (Auto) 0.2, Neutrophils # (Auto ) 5.20, Lymphocytes # (Auto) 2.11, Monocytes # (Auto) 1.16, Eosinophils # (Auto ) 0.04, Basophils # (Auto) 0.02 02/03/17 06:02 Test 02/03/17 06:02 02/03/17 08:35 02/03/17 10:27 White Blood Count 8.56 K/uL (4.8-10.8) Red Blood Count 4.98 M/uL (4.7-6.1) Hemoglobin 15.2 g/dL (14.0-18.0) Hematocrit 43.3 % (42-52) Mean Corpuscular Volume 86.9 fL (80-100) Mean Corpuscular Hemoglobin 30.5 pg (25-34) Mean Corpuscular Hemoglobin Concent 35.1 g/dl (32-36) Platelet Count 144 K/uL (130-400) Mean Platelet Volume 10.7 fL (7.4-10.4) Neutrophils (%) (Auto) 60.7 % Lymphocytes (%) (Auto) 24.6 % Monocytes (%) (Auto) 13.6 % Eosinophils (%) (Auto) 0.5 % Basophils (%) (Auto) 0.2 % Neutrophils # (Auto) 5.20 K/uL (1.4-6.5) Lymphocytes # (Auto) 2.11 K/uL (1.2-3.4) Monocytes # (Auto) 1.16 K/uL (0.11-0.59) Eosinophils # (Auto) 0.04 K/uL (0-0.5) Basophils # (Auto) 0.02 K/uL (0-0.2) RDW Standard Deviation 40.6 fL (36.4-46.3) RDW Coefficient of Variation 12.7 % (11.5-14.5) Immature Granulocyte % (Auto) 0.4 % Immature Granulocyte # (Auto) 0.03 K/uL (0.00-0.02) Activated Partial Thromboplast Time 25.9 SECONDS (21.0-31.0) Partial Thromboplastin Ratio 1.0 Anion Gap 7.0 mmol/L (3-11) Est Creatinine Clear Calc Drug Dose 98.9 ml/min Estimated GFR () 111.0 Estimated GFR (Non- 95.7 BUN/Creatinine Ratio 22.3 (10-20) Calcium Level 8.7 mg/dl (8.5-10.1) Kaolin Activated Coagulation Time 307 SECONDS (94-140) Bedside Glucose 112 mg/dl (70-99)
--- NOTE | 2017-02-03 19:11 | Progress Note ---
Subjective Date of Service: Feb 03, 2017. Subjective Pt evaluation today including: conversation w/ patient, conversation w/ family , physical exam, chart review, lab review, review of inpatient medication list feeling good no cp no sob "can i go home tonight?" explained watching into tomororw post cath reiterated meds discussion and answered further quetions Problem List Medical Problems: (1) Acute [place], inferior wall Status: Acute Review of Systems all other ROS otherwise negative except for as above Objective Vital Signs Date Time Temp Pulse Resp B/P (MAP) Pulse Ox O2 Delivery O2 Flow Rate FiO2 02/03/17 16:00 Room Air 02/03/17 15:38 36.7 97 20 104/66 (79) 95 Room Air 02/03/17 13:48 89 16 111/73 (86) Room Air 02/03/17 12:10 94 16 107/73 (84) 02/03/17 12:04 Room Air 02/03/17 11:30 98 18 101/82 (88) 94 Room Air 02/03/17 10:39 97 18 95 Room Air 02/03/17 10:23 93 18 95/73 (80) 96 Room Air 02/03/17 10:08 88 16 87/72 (77) 95 Room Air 02/03/17 10:00 85 16 100/72 (81) 94 Room Air 02/03/17 09:30 62 16 125/85 (98) 95 Room Air 02/03/17 09:25 Room Air 02/03/17 09:20 Room Air 02/03/17 09:15 60 16 130/79 (96) 95 Room Air 02/03/17 08:00 Room Air 02/03/17 07:35 36.6 78 16 105/66 (79) 95 Room Air 02/03/17 04:00 Nasal Cannula 2.0 02/03/17 03:20 36.6 82 18 95/70 (78) 97 Room Air 02/03/17 00:03 37.5 84 18 86/58 (67) 92 Room Air 02/03/17 00:01 Nasal Cannula 2.0 02/02/17 21:07 103/71 (82) 02/02/17 20:00 Nasal Cannula 2.0 02/02/17 19:55 37.1 97 18 81/59 (66) 93 Room Air Physical Exam General Appearance: no apparent distress Eyes: EOMI ENT: hearing grossly normal Neck: trachea midline Respiratory/Chest: no respiratory distress, no accessory muscle use Neurologic/Psychiatric: 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 systems 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 II-XII nml as tested Skin: normal color, warm/dry Laboratory Results Last 24 Hours Test 02/02/17 20:00 02/03/17 06:02 02/03/17 07:05 02/03/17 08:35 Bedside Glucose 120 mg/dl 110 mg/dl White Blood Count 8.56 K/uL Red Blood Count 4.98 M/uL Hemoglobin 15.2 g/dL Hematocrit 43.3 % Mean Corpuscular Volume 86.9 fL Mean Corpuscular Hemoglobin 30.5 pg Mean Corpuscular Hemoglobin Concent 35.1 g/dl Platelet Count 144 K/uL Mean Platelet Volume 10.7 fL Neutrophils (%) (Auto) 60.7 % Lymphocytes (%) (Auto) 24.6 % Monocytes (%) (Auto) 13.6 % Eosinophils (%) (Auto) 0.5 % Basophils (%) (Auto) 0.2 % Neutrophils # (Auto) 5.20 K/uL Lymphocytes # (Auto) 2.11 K/uL Monocytes # (Auto) 1.16 K/uL Eosinophils # (Auto) 0.04 K/uL Basophils # (Auto) 0.02 K/uL RDW Standard Deviation 40.6 fL RDW Coefficient of Variation 12.7 % Immature Granulocyte % (Auto) 0.4 % Immature Granulocyte # (Auto) 0.03 K/uL Activated Partial Thromboplast Time 25.9 SECONDS Partial Thromboplastin Ratio 1.0 Sodium Level 133 mmol/L Potassium Level 4.1 mmol/L Chloride Level 102 mmol/L Carbon Dioxide Level 24 mmol/L Anion Gap 7.0 mmol/L Blood Urea Nitrogen 18 mg/dl Creatinine 0.80 mg/dl Est Creatinine Clear Calc Drug Dose 98.9 ml/min Estimated GFR () 111.0 Estimated GFR (Non- 95.7 BUN/Creatinine Ratio 22.3 Random Glucose 113 mg/dl Calcium Level 8.7 mg/dl Kaolin Activated Coagulation Time 307 SECONDS Test 02/03/17 10:27 02/03/17 15:43 Bedside Glucose 112 mg/dl 119 mg/dl Assessment and Plan STEMI -s/p stenting again today, doing well -troponin trending down and symptoms have totally resolved -continue med management CAD -as above -counselled extensively on lifestyle change including exercise, eating habits, tobacco cessation on 02/01, counselled extensively (med by med with rationale and evidence) on med management and benefits/side effects/etc 02/02, reiterated discussions today -dual antiplatelets, have to hold beta rustam due to BP, hopefully low dose lisinopril (trial of 2.5mg), atorvastatin, prn nitro impaired glucose tolerance -A1c 6.3% but consumes a large amount of concentrated carbs/starches/sugars -lifestyle change discussed extensively 02/01 elevated LFTs -almost certainly lifestyle (EtOH and probably fatty liver from diet) related - - showing improvement, certainly safe to continue statin -lifestyle change discussed -also frankly and directly discussed EtOH related LFT elevation and monitoring with statin, but wtih STEMI benefits of statin still appear to outweigh the risks as long as he is monitored closely and continues to try to change drinking habits DVT proph -ambulation and antiplatelets as per cardiology management
[2017-02-03] MEDS: ATORVASTATIN 40 MG TAB PO SCH (20:27)
--- NOTE | 2017-02-03 23:30 | Medical Student: [facility] ---
Med Student Progress Note Date of Service Feb 03, 2017. Subjective Pt evaluation today including: conversation w/ patient, conversation w/ family , physical exam, chart review, lab review, review of studies Voiding: no voiding problems Avtar is a 61-year-old male w/no prior medical history who presented with a STEMI on 01/31. On the evening of 02/02, he had hypotensive episodes (86/58). He went to the drop crew laborer and had two drug-eluting stents placed in the RCA. On the morning of 02/03, he had two more stents placed in the LCX. He was seen at the bedside this afternoon. He was sleepy but quickly aroused. Today he is doing well - he denies chest pain, shortness of breath, diaphoresis , nausea. He had no concerns at the time. Briefly attempted a bowel movement but was not successful (nursing had him return to his bed). No problems with appetite. Review of Systems Constitutional: + fatigue, No fever, No chills, No sweats, No weight loss, No weakness Respiratory: No cough, No sputum, No shortness of breath, No dyspnea on exertion Cardiac: No chest pain Abdomen: No pain, No nausea, No vomiting, No diarrhea, No constipation Objective Vital Signs Date Time Temp Pulse Resp B/P (MAP) Pulse Ox O2 Delivery O2 Flow Rate FiO2 02/03/17 20:00 Room Air 02/03/17 19:34 36.7 95 20 104/64 (77) 95 Room Air 02/03/17 16:00 Room Air 02/03/17 15:38 36.7 97 20 104/66 (79) 95 Room Air 02/03/17 13:48 89 16 111/73 (86) Room Air 02/03/17 12:10 94 16 107/73 (84) 02/03/17 12:04 Room Air 02/03/17 11:30 98 18 101/82 (88) 94 Room Air 02/03/17 10:39 97 18 95 Room Air 02/03/17 10:23 93 18 95/73 (80) 96 Room Air 02/03/17 10:08 88 16 87/72 (77) 95 Room Air 02/03/17 10:00 85 16 100/72 (81) 94 Room Air 02/03/17 09:30 62 16 125/85 (98) 95 Room Air 02/03/17 09:25 Room Air 02/03/17 09:20 Room Air 02/03/17 09:15 60 16 130/79 (96) 95 Room Air 02/03/17 08:00 Room Air 02/03/17 07:35 36.6 78 16 105/66 (79) 95 Room Air 02/03/17 04:00 Nasal Cannula 2.0 02/03/17 03:20 36.6 82 18 95/70 (78) 97 Room Air 02/03/17 00:03 37.5 84 18 86/58 (67) 92 Room Air 02/03/17 00:01 Nasal Cannula 2.0 Physical Exam General Appearance: WD/WN, no apparent distress Eyes: bilateral eyes normal inspection Neck: supple, no adenopathy, no JVD, no carotid bruits, trachea midline Respiratory/Chest: chest non-tender, lungs clear, normal breath sounds, no respiratory distress, no accessory muscle use Cardiovascular: regular rate, rhythm, no edema, no gallop, no JVD, no murmur Abdomen: non tender, soft Extremities: no pedal edema, no calf tenderness Neurologic/Psychiatric: alert, normal mood/affect, oriented x 3 Skin: normal color, warm/dry Laboratory Results Last 24 Hours Test 02/03/17 06:02 02/03/17 07:05 02/03/17 08:35 02/03/17 10:27 White Blood Count 8.56 K/uL Red Blood Count 4.98 M/uL Hemoglobin 15.2 g/dL Hematocrit 43.3 % Mean Corpuscular Volume 86.9 fL Mean Corpuscular Hemoglobin 30.5 pg Mean Corpuscular Hemoglobin Concent 35.1 g/dl Platelet Count 144 K/uL Mean Platelet Volume 10.7 fL Neutrophils (%) (Auto) 60.7 % Lymphocytes (%) (Auto) 24.6 % Monocytes (%) (Auto) 13.6 % Eosinophils (%) (Auto) 0.5 % Basophils (%) (Auto) 0.2 % Neutrophils # (Auto) 5.20 K/uL Lymphocytes # (Auto) 2.11 K/uL Monocytes # (Auto) 1.16 K/uL Eosinophils # (Auto) 0.04 K/uL Basophils # (Auto) 0.02 K/uL RDW Standard Deviation 40.6 fL RDW Coefficient of Variation 12.7 % Immature Granulocyte % (Auto) 0.4 % Immature Granulocyte # (Auto) 0.03 K/uL Activated Partial Thromboplast Time 25.9 SECONDS Partial Thromboplastin Ratio 1.0 Sodium Level 133 mmol/L Potassium Level 4.1 mmol/L Chloride Level 102 mmol/L Carbon Dioxide Level 24 mmol/L Anion Gap 7.0 mmol/L Blood Urea Nitrogen 18 mg/dl Creatinine 0.80 mg/dl Est Creatinine Clear Calc Drug Dose 98.9 ml/min Estimated GFR () 111.0 Estimated GFR (Non- 95.7 BUN/Creatinine Ratio 22.3 Random Glucose 113 mg/dl Calcium Level 8.7 mg/dl Bedside Glucose 110 mg/dl 112 mg/dl Kaolin Activated Coagulation Time 307 SECONDS Test 02/03/17 15:43 Bedside Glucose 119 mg/dl Assessment and Plan Assessment and Plan: STEMI, inferior wall -underwent stent placement x 2 in LCX -doing well, no complaints -continue pharmacologic management with lisinopril 2.5 mg, atorvastatin, nitroglycerin prn, aspirin and clopidogrel -hold metoprolol, as he did not tolerate it last night from hypotensive episodes -reemphasized the importance of healthy dietary and exercise habits in addition to tobacco cessation Prediabetes -6.3 a1c -see above for lifestyle changes Elevated liver enzymes -02/03 AST - 122, ALT - 57 -LFTs trending downward -counseled about lifestyle changes regarding alcohol consumption -given improvement in LFTs and risk-benefit ratio of statin use, would proceed with statin Discharge planning: home
[2017-02-04 04:22] VITALS: BP 100/66; PULSE 94; TEMP 36.9; O2SAT 94
[2017-02-04 07:31] VITALS: BP 106/60; PULSE 89; TEMP 37; O2SAT 93
[2017-02-04] MEDS: ASPIRIN 81 MG ECTAB PO SCH (07:39)
[2017-02-04] MEDS: CLOPIDOGREL BISULFATE 75 MG TAB PO SCH (07:39)
[2017-02-04] MEDS: THIAMINE HCL 100 MG TAB PO SCH (07:40)
[2017-02-04] MEDS: LISINOPRIL 5 MG TAB PO SCH (07:40)
[2017-02-04] MEDS: METOPROLOL TARTRATE 25 MG TAB PO SCH (08:49)
--- NOTE | 2017-02-04 10:35 | Cardiology Follow-Up ---
Subjective Subjective Date of Service: Feb 04, 2017. Pt evaluation today including: conversation w/ patient, physical exam, chart review, lab review, review of studies, review of inpatient medication list Additional Details: Feeling well. No chest pain, shortness of breath. Tele reviewed -- no events. Problem List Medical Problems: (1) Acute [place], inferior wall Status: Acute Review of Systems Constitutional: + fatigue, No fever, No chills, No sweats, No weight loss, No weakness Respiratory: No cough, No sputum, No shortness of breath, No dyspnea on exertion Cardiac: No chest pain Abdomen: No pain, No nausea, No vomiting, No diarrhea, No constipation Male : + see HPI Heme: No abnormal bleeding/bruising Endo: No fatigue Skin: No rash Objective Vital Signs Last Vital Signs Documentation Date Time Temp Pulse Resp B/P (MAP) Pulse Ox O2 Delivery O2 Flow Rate FiO2 02/04/17 08:00 Room Air 02/04/17 07:31 37.0 89 16 106/60 (75) 93 02/03/17 04:00 2.0 Physical Exam: General Appearance: no apparent distress Eyes: bilateral eyes normal inspection, bilateral eyes PERRL, bilateral eyes EOMI ENT: hearing grossly normal Extremities: + pertinent finding (No ENVIRONMENTAL COMPLIANCE ENGINEER access site complications. ) Neurologic/Psychiatric: alert, normal mood/affect, oriented x 3 Skin: normal color, warm/dry Assessment and Plan 1. Inferior STEMI--post PPCI 2 CANDI to RCA 2. Multivessel coronary artery disease with 80-90 percent distal circumflex/OM2 -- now post PCI with CANDI x 2 to LCx/OM2 3. Preserved LV function inferior, inferolateral wall motion abnormalities 4. Elevated LFTs 5. History of alcohol abuse Patient feeling well. Ready for discharge today. On discharge -- --continue dual antiplatelet therapy with aspirin and clopidogrel --Relative hypotension throughout hospitalization ---> reduce metoprolol to 12.5 mg BID; WILL HOLD BRENDA ON DISCHARGE DUE TO HYPOTENSION---> PLAN TO START AN OUTPATIENT --on high-intensity statin -- F/u with me/Kip Monica in 2-3 weeks. -- Appreciate hospital medicine team care. Discharge planning: home Medications: Current Inpatient Medications Medications (Trade) Dose Ordered Sig/Suyapa Route Start Time Stop Time Status Last Admin Dose Admin Ondansetron HCl (Zofran Inj) 4 mg Q6H PRN IV 01/31/17 15:00 03/02/17 14:59 Aspirin (Ecotrin Tab) 81 mg QAM PO 02/01/17 09:00 03/03/17 08:59 02/04/17 07:39 81 MG Clopidogrel Bisulfate (plAVix TAB) 75 mg QAM PO 02/01/17 09:00 03/03/17 08:59 02/04/17 07:39 75 MG Metoprolol Tartrate (Lopressor Tab) 25 mg Q12 PO 01/31/17 21:00 03/02/17 20:59 02/04/17 08:49 12.5 MG Lisinopril (Zestril Tab) 5 mg QAM PO 02/01/17 09:00 03/03/17 08:59 02/04/17 07:40 5 MG Nitroglycerin (Nitrostat Tab) 0.4 mg Q5M PRN SL 01/31/17 15:30 03/02/17 15:29 Morphine Sulfate (MoRPHine SULFATE INJ) 2 mg Q30M PRN IV 01/31/17 15:30 02/14/17 15:29 Acetaminophen (Tylenol Tab) 650 mg Q4H PRN PO 01/31/17 15:30 03/02/17 15:29 02/02/17 23:45 650 MG Lorazepam (Ativan Tab) 0.5 mg Q4H PRN PO 01/31/17 15:30 03/02/17 15:29 Lorazepam (Ativan Inj) 1 mg Q4H PRN IV 01/31/17 15:45 03/02/17 15:44 Thiamine HCl (Vitamin B-1 Tab) 100 mg QAM PO 02/01/17 09:00 03/03/17 08:59 02/04/17 07:40 100 MG Folic Acid (Folvite Tab) 1 mg QAM PO 02/01/17 09:00 03/03/17 08:59 02/04/17 07:41 1 MG Atorvastatin Calcium (Lipitor Tab) 40 mg HS PO 02/01/17 21:00 03/03/17 20:59 02/03/17 20:27 40 MG Lab Results: Test 02/03/17 15:43 02/04/17 06:54 Bedside Glucose 119 mg/dl (70-99) Activated Partial Thromboplast Time 25.7 SECONDS (21.0-31.0) Partial Thromboplastin Ratio 1.0
--- NOTE | 2017-02-04 10:43 | Consultant Recommendations ---
[employer] Operator Recommendations Date of Service Feb 04, 2017. [employer] Operator Recommendations ACTIVITY RECOMMENDATIONS: It is common to feel weak and fatigue for a few days. * Do not drive or operate any motorized equipment for the next three days. * Limit stair usage (2 or 3 trips a day only) for the next three days. * Do not lift anything heavier than 10 pounds for the next three days. * Do not engage in vigorous exercise or any sports for the next five days. * You may shower the day after your procedure, but do not immerse the area for three days. Cleanse the site gently with soap and water. Excess manipulation of the wrist should be avoided for the next 24-48 hours. * No lifting over 2 pounds (approximately a 1/2 gallon of milk) with the utilized arm for 24 hours. SPECIAL CARE INSTRUCTIONS: * You may replace the pressure dressing or band-aid the morning after the procedure. * After your procedure, it is normal to have a small bruise or small lump at the site. Examine your site daily for any change in the bruise or lump, redness, swelling, drainage or numbness. Notify your doctor if any change. BLEEDING: * If there is a small amount of bleeding at the site, lie down and apply firm pressure with a clean cloth for ten minutes. When the bleeding stops, lie quietly keeping the procedure limb straight for six hours. Notify your doctor as soon as possible. * If the bleeding does not stop after ten minutes or if there is a large amount of bleeding or spurting, call 911 immediately. Continue to lie down and hold firm pressure until help arrives. SKIN IRRITATION: * You may experience some redness and/or swelling in the area where radiation was administered. If any skin irritation occurs, please contact your family physician. FOLLOW UP VISIT: Keep any scheduled doctor appointments.
[2017-02-04] MEDS ORDERED: LSN5 PO (10:58)
[2017-02-04] MEDS ORDERED: FLV1 PO (10:58)
[2017-02-04] MEDS ORDERED: PLV75 PO (10:58)
[2017-02-04] MEDS ORDERED: LPR25 PO (10:58)
[2017-02-04] MEDS ORDERED: THM100 PO (10:58)
[2017-02-04] MEDS ORDERED: LPT40 PO (10:58)
[2017-02-04] MEDS ORDERED: ASPEC81 PO (10:58)
--- NOTE | 2017-02-04 12:05 | Discharge Instructions ---
Discharge Instructions Date of Service Feb 04, 2017. Admission Reason for Admission: Acute Mi,Inferior Wall Discharge Discharge Diagnosis / Problem: STEMI Discharge Goals Goal(s): Diagnostic testing, Therapeutic intervention Activity Recommendations Activity Limitations: resume your previous activity . Instructions / Follow-Up Instructions / Follow-Up Heart attack You had a heart attack (also known as a myocardial infarction). This occurred because one of the blood vessels that carry oxygen and nutrient-rich blood to your heart was clogged with plaque. The plaque broke open, which created a clot that blocked off the whole vessel and cut off the blood flow. This lead to some heart tissue to because it couldn't receive oxygen and nutrients. When that occurs, the heart does not pump as well. This caused the severe chest pain, sweating, nausea, and shortness of breath that eventually brought you to the emergency department. While you were in the ED, the heart attack was confirmed based on the results of an EKG (heart monitor) and you were taken to the chemical lab supervisor to have two stents placed in the clogged vessels by going through a vessel in your wrist. Dr. Morton then placed two more stents in other heart vessels that were also clogged by going through a vessel in your thigh. Since then, we have kept you at the hospital to see how you do right after these procedures and how you do on the medications we put you on. preventing the next one: lifestyle - Lifestyle changes are hugely important for making sure you don't have another heart attack. eating - a diet rich in fresh fruit and vegetables, whole grains, and lean meats and low in starchy, sugary, or fatty foods helps to lower the amount of fat and cholesterol you take in, which lowers the chance you'll get another heart attack. exercise - ultimately, you'll want to work to a goal of 30 minutes of light cardiovascular exercise (even just a brisk walk) every single day. you' ll work up to that under the guidance of Dr Morton and cardiac rehab. of course , "life gets in the way" and truly exercising every single day will likely not always be the case, but it's important to know what "perfect" is so you can strive for that. tobacco - chewing tobacco has chemicals in it that make it easier for clots to form, which make it easier for vessels to become clogged. Therefore, it 's important to stop using it. Quitting using tobacco can take multiple tries and is often done gradually by cutting back a little bit at a time to slowly wean people from it. however, right after a heart attack, often people are in a "teachable moment" (where an "i should" becomes an "i have to") so if you're going to do it successfully, right now is the time to pull it off medications: while lifestyle changes can reduce your chances of being back here by a solid 65%, the appropriate medication management actually will reduce risk of recurrence by 80%, so while it seems like a lot to take, what we're sending you out on is actually the bare-minimum to get that benefit. aspirin - aspirin is an antiplatelet drug that you've been placed on because you have stents in the blood vessels feeding your heart. Stents can increase the risk of a clot forming. Antiplatelet medications help to decrease the risk of a clot forming. Plavix - Plavix (generic - clopidogrel) is another antiplatelet drug that was prescribed to you for the same reason aspirin was. this is because stents can actually have clots form on them until the "skin" lining the blood vessel has grown across, so for the foreseeable future we'll need to have you on both to prevent this from happening. Dr Morton will guide you on when/if you're able to stop the plavix and just stay on the aspirin alone. Lipitor - Lipitor (generic - atorvastatin) is a type of medication called statins that help to lower your cholesterol. Cholesterol can build up in the norris of blood vessels and clog them. Lipitor also lowers inflammation in your blood vessels, which will help to protect them from damage that may lead to another heart attack. since the main thing that led to this heart attack was a plaque splitting open and allowing a clot to form, being on the atorvastatin as a "blood vessel anti-inflammatory" actually is hugely protective in preventing the next one. (and for clarification sake, "regular" anti- inflammatories such as ibuprofen, alleve, etc do not carry any benefit like this - and actually can in a subtle way increase risk for a future heart attack) lisinopril - this is one of multiple types of blood pressure medications called an BRENDA inhibitor. as we discussed, these types of meds will reduce the pressure in the blood vessel going to your kidney. since your kidneys take 20% of all blood flow, reducing pressure here will reduce the "backpressure" on your heart tremendously. these medications have a long and solid track record in preventing future heart attacks as well as allowing the heart to heal better after a heart attack. we do recommend some basic labwork ( called BMP) in about 1-2 weeks, simply because while the huge majority of people will have these medications actually protect their kidneys, a small percentage will have kidneys "not particularly like" this kind of medication (for you that risk is actually well under 1%). we can see that pretty easily on labwork and stop the med, but it's something that doing labs in a week or two is quite important. About 5% of people do get an annoying dry cough from meds like this - if it were to happen, switching you to a similar medication in a class called "ARBs" gets you the same benefit without the cough. remember, for now we're going to have you hold off on taking the lisinopril until we've seen how your blood pressure is doing on the metoprolol - we wrote the Rx because it's likely you'll end up on this, and because the benefit is so big we didn't want it to "slip through the cracks" - but don't start taking it until you've followed your blood pressure for several days on the metoprolol and have talked with Dr Morton metoprolol - metoprolol is a type of blood pressure medication called a beta rustam. It works by blocking the effects of your fight or flight nervous system on the heart. this takes strain off the heart, allows it to relax and heal better, and also helps it not have to work as hard. in these ways it really helps reduce the chances of future heart attacks as well, and in ways separate from the lisinopril (even though technically they're both "blood pressure medicines"). we're going to have you start with this for the next several days (and keep the lisinopril on the shelf), follow your blood pressure several times a day, follow how you're feeling, and then check in w Dr Morton next week. if your blood pressures are OK and you're not feeling weak/lightheaded/fatigued/dizzy, then he'll start the lisinopril.(as long as you're not weak or dizzy, anything above about 90/60 is "OK" but as far as starting the lisinopril, Dr Morton would probably want to see numbers more in the 100/60 or higher range and see that you're feeling OK). nitroglycerin - this is a medication that you only take when you are having chest pain (also known as angina). You put it under your tongue and should almost immediately begin to feel your chest pain improve. If you take one , wait five minutes, and your chest pain doesn't get better, you can take another one. If you wait five more minutes and it hasn't gotten better, take a third nitroglycerin and if that doesn't bring you relief, call 911. If your chest pain is as severe as it was when you had your heart attack, take one pill and call 911. elevated liver enzymes We did bloodwork to check on your liver and some of the values for your liver enzymes, which show if your liver is inflamed, were increased. This is almost certainly due to regularly drinking alcohol (but having a diet rich in fat also contributes to it as well). The best way to lower your liver enzymes and therefore reduce the damage done on your liver is to cut back on drinking. Above, statins were mentioned as a drug that people who have had heart attacks should take. Statins have been associated with increases in liver enzymes and very, very rarely serious liver damage. Given that your liver enzymes are improved throughout your hospital stay when you have not had any alcohol and that the benefits of taking Lipitor outweigh the risk of side effects, we recommend you continue to take Lipitor. Dr Morton and/or Dr Russell will continue to follow liver enzymes closely and guide you on if anything were to need to change. we also have you on 100mg of thiamine (vitamin B1) and 1mg of folic acid (a B- vitamin "cousin") because when people drink regularly these things can get depleted. taking these vitamins will definitely help protect your brain and nerves, but may also help protect your liver. Meena Ortiz "Generic" post heart attack instructions: Home Care: * Take your medications exactly as directed. Don't skip doses. * Remember that recovery after a heart attack takes time. Plan to rest for at lease 4-8 weeks while you recover. Then return to normal activity when your doctor says it's okay. * Ask your doctor about joining a heart rehabilitation program. * Tell your doctor if you are feeling depressed. Feelings of sadness are common after a heart attack, but it is important that you speak to someone if you are feeling overwhelmed by these feelings. * If you are having chest pain, call 911 for an ambulance. Do NOT drive yourself to the hospital. * Ask your family members to learn CPR. * Learn to take your own blood pressure and pulse. Keep a record of your results. Ask your doctor when you should seek emergency medical attention. He or she will tell you which blood pressure reading is dangerous. Lifestyle Changes: * Maintain a healthy weight. Get help to lose any extra pounds. * Cut back on salt. * Limit canned, dried, packaged, and fast foods. * Don't add salt to your food. * Season foods with herbs instead of salt when you cook. * Break the smoking habit. Enroll in a stop-smoking program to improve your chances of success. * Limit fatty foods. * Ask your doctor about having your lipid levels checked regularly. * Build up your activity according to your doctor's recommendation. * Ask your doctor when it's okay to resume sexual activity. * Tell your doctor about any erectile dysfunction (ED) medication you are taking. Some ED medications are not safe if you take certain heart medications. * Try to manage stress. Follow Up: It is important for you to keep your follow up appointments with your medical provider. Current Hospital Diet Patient's current hospital diet: AHA Diet (Heart Healthy) Discharge Diet Recommended Diet: AHA Diet (Heart Healthy) Pending Studies Studies pending at discharge: no Laboratory Results Hemoglobin A1c Test 02/01/17 05:48 Range/Units Estimated Average Glucose 134 mg/dl Hemoglobin A1c 6.3 H 4.5-5.6 % Lipid Panel Test 02/01/17 05:48 Range/Units Triglycerides Level 56 0-150 mg/dl Cholesterol Level 126 0-200 mg/dl HDL Cholesterol 61 mg/dl Cholesterol/HDL Ratio 2.1 LDL Cholesterol, Calculated 54 mg/dl Medical Emergencies . Who to Call and When: Medical Emergencies: If at any time you feel your situation is an emergency, please call 911 immediately. Call 911 immediately or go to your nearest Emergency Room if you experience any of the following: Warning Signs and Symptoms of a Heart Attack * Chest pain that is not relieved by medication * Shortness of breath . Non-Emergent Contact Non-Emergency issues call your: Primary Care Provider, [employer] . . "Provider Documentation" section prepared by Robert Pfeiffer. . Director [employer] Recommendations Director [employer] Recommendations: ACTIVITY RECOMMENDATIONS: It is common to feel weak and fatigue for a few days. * Do not drive or operate any motorized equipment for the next three days. * Limit stair usage (2 or 3 trips a day only) for the next three days. * Do not lift anything heavier than 10 pounds for the next three days. * Do not engage in vigorous exercise or any sports for the next five days. * You may shower the day after your procedure, but do not immerse the area for three days. Cleanse the site gently with soap and water. Excess manipulation of the wrist should be avoided for the next 24-48 hours. * No lifting over 2 pounds (approximately a 1/2 gallon of milk) with the utilized arm for 24 hours. SPECIAL CARE INSTRUCTIONS: * You may replace the pressure dressing or band-aid the morning after the procedure. * After your procedure, it is normal to have a small bruise or small lump at the site. Examine your site daily for any change in the bruise or lump, redness, swelling, drainage or numbness. Notify your doctor if any change. BLEEDING: * If there is a small amount of bleeding at the site, lie down and apply firm pressure with a clean cloth for ten minutes. When the bleeding stops, lie quietly keeping the procedure limb straight for six hours. Notify your doctor as soon as possible. * If the bleeding does not stop after ten minutes or if there is a large amount of bleeding or spurting, call 911 immediately. Continue to lie down and hold firm pressure until help arrives. SKIN IRRITATION: * You may experience some redness and/or swelling in the area where radiation was administered. If any skin irritation occurs, please contact your family physician. FOLLOW UP VISIT: Keep any scheduled doctor appointments. AMI Core Measures Reason no ASA as I/P: Treatment provided - N/A Reason no ASA at D/C: Treatment provided - N/A Reason no statin as I/P: Treatment provided - N/A Reason no statin at D/C: Treatment provided - N/A VTE Core Measure Inpt VTE Proph given/why not?: Unfractionated heparin SQ
[2017-02-04 12:18] VITALS: BP 91/62; PULSE 86; TEMP 37.2; O2SAT 95
[2017-02-04 12:35] VITALS: BP 91/62; PULSE 86; TEMP 37.2; O2SAT 95
--- NOTE | 2017-02-04 17:00 | Discharge Summary ---
Discharge Summary Date of Service Feb 04, 2017. Discharge Summary Admission Date: Jan 31, 2017 at 14:59 Discharge Date: Feb 04, 2017 Discharge Disposition: Home Principal Diagnosis: STEMI Immunizations: Have You Had Influenza Vaccine: No History of Pneumococcal: No Procedures: Cardiac Cath - Full Note v4 Procedure Note Procedure Date Jan 31, 2017. Pre-Procedure Diagnosis STEMI AUC Score 9 Post-Procedure Diagnosis Severe CAD, Successful PCI Procedure(s) Performed Coronary Angiography, Drug Eluting Stent Scrubber System Attendant lillian Flux Core Welder(s) Julia Estimated Blood Loss 20 Medication(s) Clopidogrel, Fentanyl, Heparin, Integrilin, Nicardipine, Nitroglycerin, Versed, Lidocaine 1% Summary of Findings Indication: STEMI/Heart Alert Access: 6Fr Right Radial Artery Catheters: [place], JL3.5; JR4 guide Findings: LM - Luminal irregularities LAD - Mildly calcified, 30-40% proximal disease, distal luminal irregularities as wraps around apex. Circumflex - Moderate caliber, 80-90% proximal small-moderate size OM2 RCA - Dominant, 20-30% proximal, 100% sub-acute distal RCA occlusion; Post intervention 50% ostial R-PDA -- PCI -- Antithrombotic therapy: Heparin, Integrilin, Clopidogrel Procedure: RCA cannulated with JR4 guide Whisper wire passed across lesion into distal R-PAV Distal RCA lesion predilated with 2.5 compliant balloon Dilated lesion stented with 2 overlapping CANDI (3.0 x 22 [place], 2.75 x 30 [place]) Stents post-dilated with 3.5 noncompliant balloon IC vasodilators administered for spasm Post procedure JOSE A 3 flow, stent well expanded with minimal residual stenosis and no apparent cardiac complications. Arterial Closure: TR Band Summary: 1. Inferior STEMI/Occluded distal RCA 2. 80-90% small distal circumflex/proximal OM2 3. Successful PCI of distal RCA with 2 overlapping CANDI (3.0 x 22, 2.75 x 30 [place] ; post-dilated to 3.5). Recommendations: Admit to ICU for continued monitoring Loaded with Clopidogrel 600m Integrilin for 8 hours due to distal thrombus Continue dual-antiplatelet therapy with ASA/Clopidogrel for 1 year Trend troponins until peak, Check Echo Start beta-rustam/BRENDA as BP allows High-dose statin Consult cardiac Rehab Possible PCI of circumflex/OM2 later in hospitalization Hemodynamics Rest Ao: 131/71/98 Final Ao: 100/61/78 LV: -- Recommendations PCI without planned CABG Specimens None Radiation Exposure (mGy) 2262 Contrast (mls) 150 Fluids (cc crystalloids) 100 Drains None Anesthesia Moderate Procedural Complication(s) None Disposition ICU 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 ACC Data Cardiac Status Clinical evaluation leading to the procedure CAD Presntation: STEMI STEMI or Non-STEMI: Symptom Onset Date/Time: 01/30 14:00 Thrombolytics: No Anginal Classification: CCS IV Heart Failure: No, NYHA Class: CCS I Cardiogenic Shock w/in 24Hrs: No Cardiac Arrest w/in 24Hrs: No Imaging studies past 6 months: No Stress studies past 6 months: No Diagnostic Status: Emergency Closure Device Percutaneous Entry Location: Radial Closure Device: Radial Band Recommendations: PCI without planned CABG PCI Indication: PCI for STEMI - Unstable First Noted: First EKG Lesion Segment Name: Distal RCA Culprit Artery: Yes Stenosis Prior to Rx (%): 100 Pre-Procedure JOSE A Flow: 0 Previously Treated Lesion: No Lesion Complexity: Non-High/Non-C Lesion Length (mm): 30 Thrombus Present: Yes Bifurcation Lesion: No Guidewire Across Lesion: Yes Guidewire: Stenosis Post-Procedure (%): 0 Post-Procedure JOSE A Flow: 3 Device(s) Deployed: Yes Intraprocedure Events Significant Dissection: No Perforation: No Interpretation Summary * Name: TATIANA VALERO Study Date: 02/01/2017 06:27 AM BP: 107/74 mmHg * Patient Location: [facility]\S\1 HR: 107 * : 1955 (M/d/yyyy) Gender: Male Height: 70 in * Age: 61 yrs Ethnicity: [place] Weight: 179 lb * Ordering Physician: Dejon Morton * Referring Physician: Self, Referred * Performed By: Todd Berman RCS * * Reason For Study: AMI * BSA: 2.0 m2 * -- Conclusions -- * Left ventricular systolic function is normal. * Akinesis of the proximal and mid inferior wall and adjacent inferoseptum. * Ejection Fraction = 55-60%. * There is mild concentric left ventricular hypertrophy. * There is mild tricuspid regurgitation. Procedure Details * A complete two-dimensional transthoracic echocardiogram was performed (2D, M- mode, Doppler and color flow Doppler). * A contrast injection of Definity was performed to improve assessment of LV function. * Contrast was injected into an intravenous site in the left arm. * One vial of Definity ultrasound contrast was diluted in normal saline to a total volume of 10 ml. A total of '1' ml of solution was administered during imaging. * Lot # [id number] of Definity utilized for procedure. * Expiration date . * The attending nurse who injected the contrast agent was Lena Jones RN. Left Ventricle * The left ventricle is normal in size. * There is mild concentric left ventricular hypertrophy. * Left ventricular systolic function is normal. * Ejection Fraction = 55-60%. * Akinesis of the proximal and mid inferior wall and adjacent inferoseptum. Right Ventricle * The right ventricle is grossly normal size. * The right ventricular systolic function is normal as assessed by tricuspid annular plane systolic excursion (TAPSE) (normal >1.5 cm). Atria * Borderline left atrial enlargement. * Right atrium not well visualized. * There is no evidence of atrial septal defect, but resolution does not allow assessment for a patent foramen ovale. Mitral Valve * The mitral valve is grossly normal. * Significant mitral regurgitation is absent. Tricuspid Valve * The tricuspid valve is not well visualized, but is grossly normal. * There is no tricuspid stenosis. * There is mild tricuspid regurgitation. Aortic Valve * The aortic valve is trileaflet. * The aortic valve opens well. * Aortic stenosis is absent. * No aortic regurgitation is present. Pulmonic Valve * The pulmonary valve is not well seen, but the Doppler examination is normal without significant regurgitation or stenosis. Great Vessels * The aortic root is normal size. * The pulmonary is not well visualized. Pericardium/Pleural * There is no pericardial effusion. Great Vessels * Normal inferior vena cava size and collapsability with sniff indicates a normal right atrial pressure of 3 mmHg Last Resulted CBC 02/03/17 06:02 Red Blood Count 4.98, Mean Corpuscular Volume 86.9, Mean Corpuscular Hemoglobin 30.5, Mean Corpuscular Hemoglobin Concent 35.1, Mean Platelet Volume 10.7, Neutrophils (%) (Auto) 60.7, Lymphocytes (%) (Auto) 24.6, Monocytes (%) (Auto) 13.6, Eosinophils (%) (Auto) 0.5, Basophils (%) (Auto) 0.2, Neutrophils # (Auto ) 5.20, Lymphocytes # (Auto) 2.11, Monocytes # (Auto) 1.16, Eosinophils # (Auto ) 0.04, Basophils # (Auto) 0.02 Last Resulted BMP 02/03/17 06:02 Hemoglobin A1c Test 02/01/17 05:48 Range/Units Estimated Average Glucose 134 mg/dl Hemoglobin A1c 6.3 H 4.5-5.6 % Lipid Panel Test 02/01/17 05:48 Range/Units Triglycerides Level 56 0-150 mg/dl Cholesterol Level 126 0-200 mg/dl HDL Cholesterol 61 mg/dl Cholesterol/HDL Ratio 2.1 LDL Cholesterol, Calculated 54 mg/dl Item Value Date Time Total Bilirubin 1.3 mg/dl H 01/31/17 1240 Direct Bilirubin 0.3 mg/dl H 01/31/17 1240 Aspartate Amino Transf (AST/SGOT) 420 U/L H 01/31/17 1240 Alanine Aminotransferase (ALT/SGPT) 106 U/L H 01/31/17 1240 Troponin I 49.700 ng/ml *H 01/31/17 1240 Thyroid Stimulating Hormone (TSH) 0.594 uIu/ml 01/31/17 1240 Bedside Troponin I 35.860 ng/ml H 01/31/17 1250 Total Bilirubin 1.7 mg/dl H 02/01/17 0548 Direct Bilirubin 0.5 mg/dl H # 02/01/17 0548 Aspartate Amino Transf (AST/SGOT) 322 U/L H 02/01/17 0548 Alanine Aminotransferase (ALT/SGPT) 97 U/L H 02/01/17 0548 Alkaline Phosphatase 61 U/L 02/01/17 0548 Total Bilirubin 1.3 mg/dl H 02/01/177 Aspartate Amino Transf (AST/SGOT) 147 U/L H 02/01/17 2157 Alanine Aminotransferase (ALT/SGPT) 69 U/L 02/01/17 2157 Alkaline Phosphatase 55 U/L 02/01/17 2157 Troponin I 56.400 ng/ml *H 02/01/17 0548 Troponin I 35.600 ng/ml *H 02/01/17 1404 Troponin I 28.200 ng/ml *H 02/01/17 2157 Total Bilirubin 1.3 mg/dl H 02/02/17 0542 Aspartate Amino Transf (AST/SGOT) 113 U/L H 02/02/17 0542 Alanine Aminotransferase (ALT/SGPT) 58 U/L 02/02/17 0542 Alkaline Phosphatase 47 U/L 02/02/17 0542 Prothromb Time International Ratio 1.0 01/31/17 1240 Consultations: cardiology Medication Reconciliation New Medications: Aspirin (Aspirin EC Low Dose) 81 Mg Ectab 81 MG PO QAM, #30 TAB Atorvastatin (Atorvastatin Calcium) 40 Mg Tab 40 MG PO HS, #30 TAB Clopidogrel Bisulfate (Clopidogrel) 75 Mg Tab 75 MG PO QAM, #30 TAB Folic Acid (Folic Acid) 1 Mg Tab 1 MG PO QAM, #30 TAB Lisinopril (Lisinopril) 5 Mg Tab 5 MG PO QAM, #30 TAB Metoprolol Tartrate (Lopressor) 25 Mg Tab 12.5 MG PO DAILY, #30 TAB Thiamine HCl (Vitamin B-1) 100 Mg Tab 100 MG PO QAM, #30 TAB Discharge Exam Physical Exam: General Appearance: no apparent distress Eyes: EOMI ENT: hearing grossly normal Neck: trachea midline Respiratory/Chest: no respiratory distress, no accessory muscle use Extremities: normal inspection Neurologic/Psychiatric: cigarette tester II-XII nml as tested, alert, normal mood/affect Skin: normal color, warm/dry Hospital Course STEMI -s/p stenting as above -troponin trended down and symptoms have totally resolved -[facility] med management and lifestyle changes discussed extensively and repeatedly as well as instructed in writing. CAD -as above -counselled extensively on lifestyle change including exercise, eating habits, tobacco cessation, counselled extensively (med by med with rationale and evidence) on med management and benefits/side effects/etc -dual antiplatelets, atorvastatin, prn nitro. BP runs on the low end - ideally will be on both metoprolol and lisinopril- Rx'd as such as noted above, but instructed pt to first only take metoprolol and follow BP into next week - then d/w cardiology and/or PCP - if no symptoms and BP acceptable range, then can initiate lisinopril at PCP/cardiology direction as soon as next week (and once lisinopril started, BMP to be checked 1-2wks later) impaired glucose tolerance -A1c 6.3% but consumes a large amount of concentrated carbs/starches/sugars -lifestyle change discussed extensively -continue to follow as outpt elevated LFTs -almost certainly lifestyle (EtOH and probably fatty liver from diet) related - - showing improvement, certainly safe to continue statin -lifestyle change discussed -also frankly and directly discussed EtOH related LFT elevation and monitoring with statin, but with STEMI benefits of statin still appear to outweigh the risks as long as he is monitored closely and continues to try to change drinking habits -f/u LFTs as outpt - did trend down quickly and dramatically w cessation of EtOH while in hospital (and also pt showed no s/s withdrawal)-added thiamine and folate for safety stable for discharge to home Total Time Spent: Greater than 30 minutes This includes examination of the patient, discharge planning, medication reconciliation, and communication with other providers. Discharge Instructions Please refer to the electronic Patient Visit Report (Discharge Instructions) for additional information. Additional Copies To Jaya Russell D.O.; Dejon Morton MD
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
== END 2017-02-04 13:37 | disposition home or self-care (01) | DRG 246 ==
LOC: C.EDB 12:31 → ENRESERV 14:23 → C.MSICU 14:59 → EDBEDREQ 02-01 10:13 → ENRESERV 02-01 10:13 → C.2E 02-01 11:11
PROVIDERS: ADMIT Hospitalist; ATTEND Hospitalist
PROC: B211YZZ Fluoroscopy of Multiple Coronary Arteries using Other Contrast (ICD-10-PCS; principal; 2017-01-31 13:14)
PROC: 027035Z Dilation of Coronary Artery, One Artery with Two Drug-eluting Intraluminal Devices, Percutaneous Approach (ICD-10-PCS; principal; 2017-01-31 13:14)
PROC: B210YZZ Fluoroscopy of Single Coronary Artery using Other Contrast (ICD-10-PCS; 2017-02-03)
PROC: 0270356 Dilation of Coronary Artery, One Artery, Bifurcation, with Two Drug-eluting Intraluminal Devices, Percutaneous Approach (ICD-10-PCS; 2017-02-03)
PROC: 4A023N7 Measurement of Cardiac Sampling and Pressure, Left Heart, Percutaneous Approach (ICD-10-PCS; 2017-02-03)
DX: I21.19 ST elevation (STEMI) myocardial infarction involving other coronary artery of inferior wall (principal); I25.10 Atherosclerotic heart disease of native coronary artery without angina pectoris; R73.02 Impaired glucose tolerance (oral); R94.5 Abnormal results of liver function studies; I95.9 Hypotension, unspecified; G89.21 Chronic pain due to trauma; F12.10 Cannabis abuse, uncomplicated; F17.220 Nicotine dependence, chewing tobacco, uncomplicated; Z72.89 Other problems related to lifestyle; Z79.1 Long term (current) use of non-steroidal anti-inflammatories (NSAID); Z80.52 Family history of malignant neoplasm of bladder